=== PATIENT | female | born 1945 | race African-American/Black ===

== ENCOUNTER → 2016-08-07 | Outpatient (CLI) | payer MEDICARE, OTHER | LOC: WI 10:32 | PROVIDERS: ATTEND Physician Assistant | DX: Z12.31 Encounter for screening mammogram for malignant neoplasm of breast (principal) | CPT/HCPCS: 77067; G0202 ==

== ENCOUNTER → 2016-10-21 | Outpatient (CLI) | payer MEDICARE, OTHER | LOC: OD 11:07 | PROVIDERS: ATTEND Physician Assistant | DX: M25.511 Pain in right shoulder (principal) ==

== ENCOUNTER → 2017-01-13 | Outpatient (CLI) | payer MEDICARE, OTHER ==
--- NOTE | 2017-01-13 16:41 | XCELERA REPORT ---
[address] [address] Lower Extremity Venous Evaluation Name: DARY BASS Age: 71 yrs Gender: Female : 1945 Patient Status: Outpatient Patient Location: Study Date: 01/13/2017 03:32 PM Procedure: Color flow and duplex imaging bilaterally of the veins of the lower extremities as well as the Common Femoral veins. Reason For Study: BLE PAIN Ordering Physician: CECILIA TINEO Performed By: Montana Rodarte Right Sided Venous Evaluation Normal vessel filling wall to wall, compression and augmentation as well as Colour flow down to the infrageniculate veins. Left Sided Venous Evaluation Normal vessel filling wall to wall, compression and augmentation as well as Colour flow down to the infrageniculate veins. Interpretation Summary No duplex evidence of DVT or obstruction in the bilateral lower extremities. : CECILIA TINEO > Bipin Germain
== END ==
LOC: SP 14:30
PROVIDERS: ATTEND Physician Assistant
DX: M79.662 Pain in left lower leg (principal); M79.661 Pain in right lower leg
CPT/HCPCS: 93970

== ENCOUNTER → 2017-02-02 | Outpatient (CLI) | payer MEDICARE, OTHER ==
--- NOTE | 2017-02-02 11:03 | RADIOLOGY REPORT (SQ) ---
EXAM DESCRIPTION: U/S THYROID/SFT TISS HD NECK COMPLETED DATE/TIME: 02/02/2017 10:27 am REASON FOR STUDY: TYROID NODULES (E04.1) E04.1 NONTOXIC SINGLE THYROID NODULE COMPARISON: None. TECHNIQUE: Dynamic and static almeida-scale images acquired of the thyroid gland. Selected additional c olor/power Doppler images recorded. All images stored to PACS. LIMITATIONS: None. FINDINGS: RIGHT LOBE: Normal size. Homogeneous echotexture. Heterogenous nodule in the midpole christy suring 7 mm. LEFT LOBE: Normal size. Homogeneous echotexture. Heterogenous nodules, the largest measuring 9 mm a nd 12 mm. ISTHMUS: Normal size. Homogeneous echotexture. No cystic or solid masses. OTHER: No other significant finding. IMPRESSION: BILATERAL HETEROGENOUS NODULES PROBABLY DUE TO MULTINODULAR GOITER. NO DOMINANT MASS. COMMENT: RECOMMENDATIONS FOR THYROID NODULES 1 CM OR LARGER Solitary nodules: Microcalcifications - FNA if 1 cm or greater. Solid or coarse calcification - FNA if 1.5 cm or greater. Mixed Solid/Cystic or Cystic with Mural Nodule - FNA if 2 cm or greater. None of the above but substantial growth since previous - FNA. Cystic with none of the above features and no significant growth - no FNA. Multiple nodules: Use above criteria for selection of nodules to FNA/biopsy. Biopsy probably not necessary in enlarged gland with multiple nodules of similar appearance. Abnormal lymph nodes - FNA/biopsy. Reference: Management of Thyroid Nodules Detected at [place]: Society of Radiologists in Ultrasound Consensus Stateme nt. Radiology 2005; 237:794-800 TECHNICAL DOCUMENTATION: JOB ID: [id number] [employer]- All Rights Reserved
== END ==
LOC: RAD 09:29
PROVIDERS: ATTEND Physician Assistant
DX: E04.1 Nontoxic single thyroid nodule (principal)
CPT/HCPCS: 76536

== ENCOUNTER → 2017-02-23 | Outpatient (CLI) | payer MEDICARE, OTHER ==
--- NOTE | 2017-02-23 11:14 | RADIOLOGY REPORT (SQ) ---
EXAM DESCRIPTION: ARTERIAL LOWER EXTREM UNILAT COMPLETED DATE/TIME: 02/23/2017 10:36 am REASON FOR STUDY: LLE PAIN R60.0 LOCALIZED EDEMA M79.662 PAIN IN LEFT LOWER LEG COMPARISON: Bilateral lower extremity venous Doppler 01/13/2017 TECHNIQUE: Dynamic and static almeida scale and color images acquired of the lower extremity arteries. Additional selected spectral images recorded. ABIs recorded. LIMITATIONS: None. FINDINGS: LEFT LEG: ABIS: Normal, over 1.0. INFLOW ARTERIES: Normal, no obstruction evident. FEMORAL ARTERIES:Multiphasic waveforms. Normal, no velocity elevation to suggest focal stenosis. Norm al color Doppler evaluation. No aneurysm. POPLITEAL ARTERY:Multiphasic waveforms. Normal, no velocity elevation to suggest focal stenosis. Norm al color Doppler evaluation. No aneurysm. PATENT TIBIOPERONEAL TRUNK AND 3 VESSEL RUNOFF: Yes, normal vessels. TBI: Not performed. OTHER: No other significant finding. IMPRESSION: NORMAL LEFT LOWER EXTREMITY ARTERIAL DOPPLER WITH ABIs. COMMENT: [facility] NORMAL: Greater than 1.0 MINIMAL DISEASE: 0.9 to 1.0 CLAUDICATION: 0.5 to 0.9 SEVERE ARTERIAL DISEASE: Less than 0.5 [facility] NORMAL: Greater than 1.0 (1.2 If Heavy Calcifications) NORMAL TO MILD ISCHEMIA: 0.8 to 1.0 MODERATE ISCHEMIA: 0.4 to 0.8 SEVERE ISCHEMIA: Less than 0.4 TECHNICAL DOCUMENTATION: JOB ID: [id number] [employer]- All Rights Reserved
== END ==
LOC: SP 09:22
PROVIDERS: ATTEND Physician Assistant
DX: M79.662 Pain in left lower leg (principal)
CPT/HCPCS: 93926

== ENCOUNTER 2017-03-04 17:30 | Emergency (ER) | payer MEDICARE, OTHER ==
[2017-03-04] MEDS ORDERED: ASPIRIN 81 MG TABLET, CHEWABLE PO ONE (18:08)
--- NOTE | 2017-03-04 19:13 | ER Document Report ---
ED Medical Screen (RME) - General Chief Complaint: Shortness Of Breath Stated Complaint: RIGHT SIDE ARM PAIN,TINGLING,NECK PAIN Time Seen by Provider: 03/04/17 18:54 Notes: Patient has multiple different complaints. She states she has had right arm pain for a month but is worse today. She denies any swelling. She also states that she has had left leg swelling and pain. She states she has had a leg swelling for over 1 month and an ultrasound a month ago was negative. Patient mentioned shortness of breath to the triage nurse but did not mention any shortness of breath to me. TRAVEL OUTSIDE OF THE [place] IN LAST 30 DAYS: No - Related Data Allergies/Adverse Reactions: Sulfa (Sulfonamide Antibiotics) Allergy (Intermediate, Verified 03/04/17 18:06) Past Medical History - Social History Frequency of alcohol use: None Drug Abuse: None - Past Medical History Cardiac Medical History: Reports: Hx Hypertension Pulmonary Medical History: Denies: Hx Tuberculosis Renal/ Medical History: Denies: Hx Peritoneal Dialysis Musculoskeltal Medical History: Reports Hx Arthritis Past Surgical History: Reports: Hx Orthopedic Surgery - back. Denies: Hx Pacemaker - Immunizations Hx Diphtheria, Pertussis, Tetanus Vaccination: Yes Physical Exam - Vital signs Vitals: Temp Pulse Resp BP Pulse Ox 98.9 F 67 20 158/66 H 93 03/04/17 18:06 03/04/17 18:06 03/04/17 18:06 03/04/17 18:06 03/04/17 18:06 Course - Vital Signs Vital signs: Temp Pulse Resp BP Pulse Ox 98.9 F 67 20 158/66 H 93 03/04/17 18:06 03/04/17 18:06 03/04/17 18:06 03/04/17 18:06 03/04/17 18:06
[2017-03-04] MEDS ORDERED: KETOROLAC TROMETHAMINE 60 MG/2 ML SDV IM ONE (19:28)
--- NOTE | 2017-03-04 19:31 | RADIOLOGY REPORT (SQ) ---
EXAM DESCRIPTION: HUMERUS RIGHT COMPLETED DATE/TIME: 03/04/2017 7:23 pm REASON FOR STUDY: pain COMPARISON: None. NUMBER OF VIEWS: Two views. TECHNIQUE: Two radiographic images were acquired of the right humerus to include elbow and shoulder in at least one projection. LIMITATIONS: None. FINDINGS: MINERALIZATION: Normal. BONES: No acute fracture or dislocation. No worrisome bone lesions. SOFT TISSUES: No obvious swelling or foreign body. OTHER: No other significant finding. IMPRESSION: NEGATIVE STUDY OF THE RIGHT HUMERUS. NO RADIOGRAPHIC EVIDENCE OF ACUTE INJURY. TECHNICAL DOCUMENTATION: JOB ID: [id number] [employer]- All Rights Reserved
--- NOTE | 2017-03-04 19:52 | EKG REPORT ---
SEVERITY:- OTHERWISE NORMAL ECG - SINUS RHYTHM LEFT AXIS DEVIATION : Confirmed by: Shine Flores MD 04-Mar-2017 19:51:28
--- NOTE | 2017-03-04 21:34 | RADIOLOGY REPORT (SQ) ---
EXAM DESCRIPTION: VENOUS UNILATERAL UPPER COMPLETED DATE/TIME: 03/04/2017 9:25 pm REASON FOR STUDY: right upper ext pain COMPARISON: None. TECHNIQUE: Dynamic and static almeida scale and color images acquired of the right arm venous system. S elected spectral images acquired with additional compression and augmentation maneuvers. The contrala teral subclavian vein and internal jugular vein were also imaged. Images stored on PACS. LIMITATIONS: None. FINDINGS: INTERNAL JUGULAR VEIN: Normal phasicity, compression, augmentation. No visualized echogeni c material on almeida scale. No defects on color images. Comparison opposite side normal. SUBCLAVIAN VEIN: Normal compression, augmentation. No visualized echogenic material on almeida scale. No defects on color images. AXILLARY VEIN: Normal compression, augmentation. No visualized echogenic material on almeida scale. No d efects on color images. BRACHIAL VEIN: Normal compression, augmentation. No visualized echogenic material on almeida scale. No d efects on color images. BASILIC VEIN: Normal compression, augmentation. No visualized echogenic material on almeida scale. No de fects on color images. CEPHALIC VEIN: Normal compression, augmentation. No visualized echogenic material on almeida scale. No d efects on color images. OTHER: No other significant finding. CONTRALATERAL SUBCLAVIAN VEIN AND INTERNAL JUGULAR VEIN: Normal phasicity, compression and augmentation. No visualized echogenic material on almeida scale. No de fects on color images. IMPRESSION: NO EVIDENCE DVT OR SVT IN THE RIGHT ARM. TECHNICAL DOCUMENTATION: JOB ID: [id number] [employer]- All Rights Reserved
--- NOTE | 2017-03-04 22:11 | ER Document Report ---
ED General - General Chief Complaint: Shortness Of Breath Stated Complaint: RIGHT SIDE ARM PAIN,TINGLING,NECK PAIN Time Seen by Provider: 03/04/17 18:54 TRAVEL OUTSIDE OF THE [place] IN LAST 30 DAYS: No - HPI Patient complains to provider of: Right arm pain Notes: Patient coming in for intermittent right arm pain. Patient states has been evaluated by primary care physician however has not found clear etiology for the right arm pain. Denies any trauma states pain is mostly achy at the biceps region. Denies any new physical activity. Denies any relief with Tylenol. Upon my evaluation patient is resting comfortably in no obvious distress. - Related Data Allergies/Adverse Reactions: Sulfa (Sulfonamide Antibiotics) Allergy (Intermediate, Verified 03/04/17 18:06) Past Medical History - Social History Smoking Status: Never Smoker Frequency of alcohol use: None Drug Abuse: None Family History: Reviewed & Not Pertinent Patient has suicidal ideation: No Patient has homicidal ideation: No - Past Medical History Cardiac Medical History: Reports: Hx Hypertension Pulmonary Medical History: Denies: Hx Tuberculosis Renal/ Medical History: Denies: Hx Peritoneal Dialysis Musculoskeltal Medical History: Reports Hx Arthritis Past Surgical History: Reports: Hx Orthopedic Surgery - back. Denies: Hx Pacemaker - Immunizations Hx Diphtheria, Pertussis, Tetanus Vaccination: Yes Review of Systems - Review of Systems Constitutional: No symptoms reported EENT: No symptoms reported Cardiovascular: No symptoms reported Respiratory: No symptoms reported Gastrointestinal: No symptoms reported Genitourinary: No symptoms reported Female Genitourinary: No symptoms reported Musculoskeletal: No symptoms reported Skin: No symptoms reported Hematologic/Lymphatic: No symptoms reported Neurological/Psychological: No symptoms reported -: Yes All other systems reviewed and negative - Right arm pain Physical Exam - Vital signs Vitals: Temp Pulse Resp BP Pulse Ox 98.9 F 67 20 158/66 H 93 03/04/17 18:06 03/04/17 18:06 03/04/17 18:06 03/04/17 18:06 03/04/17 18:06 Interpretation: Normal - General General appearance: Appears well, Alert - HEENT Head: Normocephalic, Atraumatic Eyes: Normal Pupils: PERRL - Respiratory Respiratory status: No respiratory distress Chest status: Nontender Breath sounds: Normal Chest palpation: Normal - Cardiovascular Rhythm: Regular Heart sounds: Normal auscultation Murmur: No - Abdominal Inspection: Normal Distension: No distension Bowel sounds: Normal Tenderness: Nontender Organomegaly: No organomegaly - Back Back: Normal, Nontender - Extremities General upper extremity: Normal inspection, Nontender, Normal color, Normal ROM , Normal temperature General lower extremity: Normal inspection, Nontender, Normal color, Normal ROM , Normal temperature, Normal weight bearing. No: Katherine's sign - Neurological Neuro grossly intact: Yes Cognition: Normal Orientation: AAOx4 [place] Coma Scale Eye Opening: Spontaneous Darby Coma Scale Verbal: Oriented Darby Coma Scale Motor: Obeys Commands [place] Coma Scale Total: 15 Speech: Normal Motor strength normal: LUE, RUE, LLE, RLE Sensory: Normal - Psychological Associated symptoms: Normal affect, Normal mood - Skin Skin Temperature: Warm Skin Moisture: Dry Skin Color: Normal Course - Re-evaluation Re-evalutation: 03/04/17 23:18 No signs of fracture or blood clot on examination. Patient will be discharged home patient states good pain relief with ketorolac. She will be encouraged to use lidocaine patches and or anti-inflammatory medications. - Vital Signs Vital signs: Temp Pulse Resp BP Pulse Ox 97.5 F 56 L 17 140/62 H 100 03/04/17 23:07 03/04/17 23:07 03/04/17 23:07 03/04/17 23:07 03/04/17 23:07 Discharge - Discharge Clinical Impression: Right arm pain Condition: Good Disposition: HOME, SELF-CARE Instructions: Arm Pain, Nonspecific ([facility]), Myalagia (Muscle Pain) ([facility]) Additional Instructions: Examination today including x-rays and venous Dopplers not show any signs of fracture or blood clot. I am pleased that your pain was relieved with ketorolac. SHe may also try the Lidoderm patch given to you here in the ER. [employer] makes lidocaine cream also [employer] makes Lidoderm patches that she may also try please continue with Tylenol Motrin follow-up with your primary care physician. Prescriptions: Ibuprofen [Motrin 600 Mg Tablet] 600 mg PO TID #15 tablet Referrals: SANDRA MAZA MD [Primary Care Provider] - Follow up as needed
[2017-03-04 23:08] VITALS: BP 140/62
[2017-03-04] MEDS ORDERED: LIDOCAINE 5% (700 MG) TRANSDERMAL ADH..PATCH TP ONE (23:13)
== END 2017-03-04 23:22 | disposition home or self-care (01) ==
LOC: ER 17:30
DX: M79.601 Pain in right arm (principal); R06.02 Shortness of breath; R20.0 Anesthesia of skin; M54.2 Cervicalgia
CPT/HCPCS: 93005; 99284; 96372; 93971; 73060; 93010; A9270; J1885

== ENCOUNTER 2017-04-01 10:34 | Inpatient (IN) | payer MEDICARE, OTHER ==
[2017-04-01] MEDS ORDERED: METOPROLOL TARTRATE PF/INJ 5 MG/5 ML SDV IV ONE (10:45)
--- NOTE | 2017-04-01 10:55 | ER Document Report ---
ED General - General Chief Complaint: Arrhythmia Stated Complaint: HEART RATE ISSUES Time Seen by Provider: 04/01/17 10:37 Notes: 71-year-old female presents with shortness of breath for 2 weeks, worse when lying flat and exertion and then accompanied today by palpitations. Constant. Severe. No history of chest pain or pressure. She has had swollen legs. Per Dr. Cannon who accompanies this patient to the ED he has been managing her ideally with Eliquis and Cardizem but she was unable to fill those meds. She got 25 chewed metoprolol 25 oral at the office and remains tachycardic. She is a patient of Dr. Anaya. TRAVEL OUTSIDE OF THE [place] IN LAST 30 DAYS: No - Related Data Allergies/Adverse Reactions: Sulfa (Sulfonamide Antibiotics) Allergy (Intermediate, Verified 03/04/17 18:06) Past Medical History - Social History Smoking Status: Former Smoker Family History: Reviewed & Not Pertinent - Past Medical History Cardiac Medical History: Reports: Hx Hypertension Pulmonary Medical History: Denies: Hx Tuberculosis Renal/ Medical History: Denies: Hx Peritoneal Dialysis Musculoskeltal Medical History: Reports Hx Arthritis Past Surgical History: Reports: Hx Orthopedic Surgery - back. Denies: Hx Pacemaker - Immunizations Hx Diphtheria, Pertussis, Tetanus Vaccination: Yes Review of Systems - Review of Systems Notes: REVIEW OF SYSTEMS GEN: Denies fever, chills, weight loss ENT: Denies sore throat, nasal discharge, ear pain EYES: Denies blurry vision, eye pain, discharge CV: D palpitations edema RESP: Dyspnea orthopnea GI: Denies abdominal pain, nausea, vomiting, diarrhea MSK: Denies joint pain/swelling, edema, SKIN: Denies rash, skin lesions LYMPH: Denies swollen glands/lymph nodes NEURO: Denies headache, focal weakness or numbness, dizziness PSYCH: Denies depression, suicidal or homicidal ideation PHYSICAL EXAMINATION General: No acute distress, well-nourished Head: Atraumatic, normocephalic ENT: Mouth normal, oropharynx moist, no exudates or tonsillar enlargement Eyes: Conjunctiva normal, pupils equal, lids normal Neck: No JVD, supple, no guarding CVS: Irregularly irregular tachycardic rate no murmurs Resp: No resp distress, equal and normal breath sounds bilaterally GI: Nondistended, soft, no tenderness to palpation, no rebound or guarding Ext: No deformities, lateral 2+ leg edema, normal range of motion in upper and lower ext Back: No CVA or midline TTP Skin: No rash, warm Lymphatic: No lymphadeopathy noted Neuro: Awake, alert. Face symmetric. GCS 15. Physical Exam - Vital signs Vitals: Resp 23 H 04/01/17 10:43 Course - Re-evaluation Re-evalutation: 04/01/17 10:54 Patient presented with atrial fib relation rapid ventricular response and some signs of heart failure. She is in no acute distress. Rate is in the 140s. Discussed case with Dr. Simpson who is at the bedside. Will start patient on Cardizem bolus and drip give aspirin rule out heart failure with BNP and chest x -ray admit to Dr. Lynn. Dr. melissa has already contacted Dr. Lynn. - Vital Signs Vital signs: Temp Pulse Resp BP Pulse Ox 20 125/106 H 04/01/17 10:48 04/01/17 10:48 Critical Care Note - Critical Care Note Total time excluding time spent on procedures (mins): 31 Comments: The above patient is critically ill. Not including procedures, but including direct re-evaluations, speaking with patient and/or consultants, interpreting results, and documenting, I spent the total amount of minute listed listed above on critical care time
[2017-04-01] MEDS ORDERED: DILTIAZEM HCL INJ 25 MG/5 ML VIAL IV ONE (10:59)
[2017-04-01] MEDS ORDERED: LEVALBUTEROL HCL NEB 0.63 MG/3 ML AMPUL NEB PRN (11:04)
--- NOTE | 2017-04-01 11:28 | RADIOLOGY REPORT (SQ) ---
EXAM DESCRIPTION: CHEST SINGLE VIEW COMPLETED DATE/TIME: 04/01/2017 11:08 am REASON FOR STUDY: [facility] COMPARISON: 08/28/2015 EXAM PARAMETERS: NUMBER OF VIEWS: One view. TECHNIQUE: Single frontal radiographic view of the chest acquired. RADIATION DOSE: NA LIMITATIONS: None. FINDINGS: LUNGS AND PLEURA: No opacities, masses or pneumothorax. No pleural effusion. MEDIASTINUM AND HILAR STRUCTURES: No masses. Contour normal. HEART AND VASCULAR STRUCTURES: Heart size is borderline. There is no failure. BONES: No acute findings. HARDWARE: None in the chest. OTHER: No other significant finding. IMPRESSION: Borderline cardiomegaly without failure. TECHNICAL DOCUMENTATION: JOB ID: [id number]
[2017-04-01 11:30] LABS: ABSOLUTE EOSINOPHILS # (AUTO) 0.1 10^3/uL (0.0-0.6); ABSOLUTE LYMPHOCYTES (AUTO) 1.3 10^3/uL (0.5-4.7); ABSOLUTE MONOCYTES (AUTO) 0.3 10^3/uL (0.1-1.4); BASOPHILS % (AUTO) 0.6 % (0-2); EOSINOPHILS % (AUTO) 1.8 % (0-6); HEMATOCRIT 31.5 % (36.0-47.0); HEMOGLOBIN 10.1 g/dL (12.0-15.5); HGB HCT DIFFERENCE -1.2; LYMPHOCYTES % (AUTO) 22.8 % (13-45); MEAN CORPUSCULAR VOLUME 84 fl (80-97); MONOCYTES % (AUTO) 4.9 % (3-13); RED BLOOD COUNT 3.73 10^6/uL (3.72-5.28); RED CELL DISTRIBUTION WIDTH 14.3 % (11.5-14.0); SEGMENTED NEUTROPHILS % (AUTO) 69.9 % (42-78); WHITE BLOOD COUNT 5.7 10^3/uL (4.0-10.5)
[2017-04-01] MEDS: DILTIAZEM HCL/D5W 125 MG/125 ML RTUINJ IV PRN ×2 (11:40→20:29)
[2017-04-01 11:53] LABS: ANION GAP 9 (5-19); BLOOD UREA NITROGEN 44 mg/dL (7-20); CALCIUM 9.4 mg/dL (8.4-10.2); CARBON DIOXIDE 24 mmol/L (22-30); CHLORIDE 110 mmol/L (98-107); CREATININE RESULT 1.27 mg/dL (0.52-1.25); GLUCOSE 102 mg/dL (75-110); POTASSIUM 4.4 mmol/L (3.6-5.0); SODIUM 143.3 mmol/L (137-145)
[2017-04-01 12:04] LABS: CREATINE KINASE MB 1.41 ng/mL (<4.55)
[2017-04-01 12:10] LABS: TROPONIN I 0.039 ng/mL
--- NOTE | 2017-04-01 12:48 | PDOC H&P ---
History of Present Illness Admission Date/PCP: SANDRA MAZA MD Patient complains of: Shortness of the breath with a rapid heart rate History of Present Illness: DARY BASS is a 71 year old female This is a 71-year-old female with a history of the hypertension and recently diagnosed with atrial fibrillation and currently see a Dr. Simpson and start the patient on a Cardizem and EliquisAnd the patient's cannot afford the Cardizem and patients went to the Dr. Simpson's office was a heart rate was very high and patient's feeling short of breath and patient was sent to the emergency departmentAnd the patient in the emergency departments found the A. fib with rapid ventricular response and patient was started on a Cardizem drip and given Lovenox subcuAnd patient seen by Dr. Simpson in the emergency department and the suggest to admit in the IMCU for further evaluations Patient's currently denied any chest pain denied any other symptoms Past Medical History Cardiac Medical History: Reports: Atrial Fibrillation, Hypertension Pulmonary Medical History: Denies: Tuberculosis Endocrine Medical History: Reports: Other Endocrine History Note: Multinodular goiter Musculoskeltal Medical History: Reports: Arthritis Musculoskeletal History Note: Chronic back pain and neck pain Hematology: Reports: Other Hematology History Note: History of the deep venous thrombosis Past Surgical History Past Surgical History: Reports: Orthopedic Surgery - back Denies: Pacemaker Social History Smoking Status: Former Smoker Hx Recreational Drug Use: No Hx Prescription Drug Abuse: No Family History Family History: Reviewed & Not Pertinent Parental Family History Reviewed: Yes Children Family History Reviewed: Yes Sibling(s) Family History Reviewed.: Yes Medication/Allergy Allergies/Adverse Reactions: Sulfa (Sulfonamide Antibiotics) Allergy (Intermediate, Verified 03/04/17 18:06) Review of Systems Constitutional: PRESENT: fatigue. ABSENT: chills, fever(s), headache(s), weight gain, weight loss Eyes: ABSENT: visual disturbances Ears: ABSENT: hearing changes Cardiovascular: PRESENT: dyspnea on exertion, palpitations. ABSENT: chest pain , edema, orthropnea Respiratory: ABSENT: cough, hemoptysis Gastrointestinal: ABSENT: abdominal pain, constipation, diarrhea, hematemesis, hematochezia, nausea, vomiting Genitourinary: ABSENT: dysuria, hematuria Musculoskeletal: ABSENT: joint swelling Integumentary: ABSENT: rash, wounds Neurological: ABSENT: abnormal gait, abnormal speech, confusion, dizziness, focal weakness, syncope Psychiatric: ABSENT: anxiety, depression, homidical ideation, suicidal ideation Endocrine: ABSENT: cold intolerance, heat intolerance, menstrual abnormalities, polydipsia, polyuria Hematologic/Lymphatic: ABSENT: easy bleeding, easy bruising, lymphadenopathy Physical Exam Vital Signs: Temp Pulse Resp BP Pulse Ox 20 125/106 H 04/01/17 10:48 04/01/17 10:48 General appearance: PRESENT: no acute distress, well-developed, well-nourished Head exam: PRESENT: atraumatic, normocephalic Eye exam: PRESENT: conjunctiva pink, EOMI, PERRLA. ABSENT: scleral icterus Ear exam: PRESENT: normal external ear exam Mouth exam: PRESENT: moist, tongue midline Neck exam: PRESENT: full ROM. ABSENT: carotid bruit, JVD, lymphadenopathy, thyromegaly Respiratory exam: PRESENT: clear to auscultation mary Cardiovascular exam: PRESENT: irregular rhythm, +S1, +S2, tachycardia. ABSENT: diastolic murmur, rubs, systolic murmur Pulses: PRESENT: normal dorsalis pedis pul, +2 pedal pulses bilateral Vascular exam: PRESENT: normal capillary refill GI/Abdominal exam: PRESENT: normal bowel sounds, soft. ABSENT: distended, guarding, mass, organolmegaly, rebound, tenderness Rectal exam: PRESENT: deferred Extremities exam: ABSENT: pedal edema Neurological exam: PRESENT: alert, awake, oriented to person, oriented to place , oriented to time, oriented to situation, CN II-XII grossly intact. ABSENT: motor sensory deficit Psychiatric exam: PRESENT: appropriate affect, normal mood. ABSENT: homicidal ideation, suicidal ideation Skin exam: PRESENT: dry, intact, warm. ABSENT: cyanosis, rash Results Laboratory Results: 04/01/17 11:11 04/01/17 11:11 WBC 5.7 RBC 3.73 Hgb 10.1 L Hct 31.5 L MCV 84 MCH 27.0 MCHC 32.0 RDW 14.3 H Plt Count 154 Seg Neutrophils % 69.9 Lymphocytes % 22.8 Monocytes % 4.9 Eosinophils % 1.8 Basophils % 0.6 Absolute Neutrophils 4.0 Absolute Lymphocytes 1.3 Absolute Monocytes 0.3 Absolute Eosinophils 0.1 Absolute Basophils 0.0 Impressions: Chest X-Ray 04/01/17 10:37 IMPRESSION: Borderline cardiomegaly without failure. Assessment & Plan - Diagnosis (1) Atrial fibrillation with rapid ventricular response Is this a current diagnosis for this admission?: Yes Plan: Start the patient on a Cardizem drip and continues the Lovenox and follow with the cardiology (2) Congestive heart failure Qualifiers: Congestive heart failure type: unspecified congestive heart failure type Congestive heart failure chronicity: acute Qualified Code(s): I50.9 - Heart failure, unspecified Is this a current diagnosis for this admission?: Yes Plan: Start the patient on IV Lasix and get the echocardiogram (3) SOB Is this a current diagnosis for this admission?: Yes Plan: Most likely due to the above conditionsWe will also get the CT angiogram due to the history of the DVT in the past with new onset of the shortness of the breath and the A. fib (4) Hypertension Qualifiers: Hypertension type: essential hypertension Qualified Code(s): I10 - Essential (primary) hypertension Is this a current diagnosis for this admission?: Yes Plan: Currently all stable (5) Chronic back pain Qualifiers: Back pain location: low back pain Is this a current diagnosis for this admission?: Yes Plan: Since currently see a pain management (6) Hyperlipidemia Qualifiers: Hyperlipidemia type: unspecified Qualified Code(s): E78.5 - Hyperlipidemia , unspecified Is this a current diagnosis for this admission?: Yes Plan: Continues to current medication (7) Multinodular goiter Is this a current diagnosis for this admission?: Yes Plan: Since recent ultrasound was stable we will check the TSH and free T4 - Time Time Spent: 30 to 50 Minutes Medications reviewed and adjusted accordingly: Yes Anticipated discharge: Home Within: Other - Inpatient Certification Medical Necessity: Need Close Monitoring Due to Risk of Patient Decompensation, Need For Continuous Telemetry Monitoring Post Hospital Care: D/C [employer] Documentation - Plan Summary Plan Summary: Discussed with the patient and the family and coordinate care with the cardiology see other MD orders
[2017-04-01] MEDS ORDERED: FUROSEMIDE INJ/PF 20 MG/2 ML SDV IV ONE (13:45)
--- NOTE | 2017-04-01 19:21 | PDOC CONSULTATION ---
Consultation Consult Date: 04/01/17 Attending physician:: SONY EISENBERG Consult reason:: Anemia, possible GI bleed History of Present Illness Admission Date/PCP: 04/01/17 11:04 SANDRA LYNN MD History of Present Illness: patient was admitted by Dr Lynn recently had seen Dr Peña, patient found to be in A fib and procedure was defered then saw Dr Simpson and was started on rate control and Eliquis medication started to feel weak patient noted to be anemic denies seeing any blood in urine, vagina or having any hematemesis was scheduled for an EGD and colonoscopy consult called in to me I spoke with Dr Lynn, he is agreeable to moving forward to try and get the procedures done here while she is an inpatient she has had her Eliquis stopped and is now on Lovenox patient willing to have it done Past Medical History Cardiac Medical History: Reports: Atrial Fibrillation, Hypertension Pulmonary Medical History: Denies: Tuberculosis EENT Medical History: Reports: Other Endocrine Medical History: Reports: Other Musculoskeltal Medical History: Reports: Arthritis Hematology: Reports: Other Past Surgical History Past Surgical History: Reports: Orthopedic Surgery - back Denies: Pacemaker Social History Smoking Status: Never Smoker Frequency of Alcohol Use: None Hx Recreational Drug Use: No Drugs: None Hx Prescription Drug Abuse: No - Advance Directive Resuscitation Status: Full Code Family History Family History: Reviewed & Not Pertinent Parental Family History Reviewed: Yes Children Family History Reviewed: Unknown Sibling(s) Family History Reviewed.: Unknown Medication/Allergy Home Medications: Apixaban [Eliquis 5 mg Tablet] 5 mg PO Q12 04/01/17 Diltiazem HCl [Diltiazem 24Hr ER] 120 mg PO DAILY 04/01/17 Furosemide [Lasix 20 mg Tablet] 20 mg PO DAILY 04/01/17 Hydrochlorothiazide [Hydrodiuril 12.5 mg Capsule] 12.5 mg PO DAILY 04/01/17 Lisinopril [Prinivil 40 mg Tablet] 40 mg PO DAILY 04/01/17 Allergies/Adverse Reactions: Sulfa (Sulfonamide Antibiotics) Allergy (Intermediate, Verified 03/04/17 18:06) Review of Systems Constitutional: ABSENT: fever(s), headache(s), night sweats, weakness Eyes: ABSENT: visual disturbances Ears: ABSENT: hearing changes Nose, Mouth, and Throat: ABSENT: mouth pain, sore throat Cardiovascular: ABSENT: edema, orthropnea Respiratory: ABSENT: dyspnea, hemoptysis Gastrointestinal: PRESENT: heartburn. ABSENT: abdominal pain, diarrhea, dysphagia, melena Genitourinary: ABSENT: dysuria, hematuria Musculoskeletal: ABSENT: deformity, joint swelling Integumentary: ABSENT: lesions, pruritus Neurological: ABSENT: syncope, tingling, tremor(s), vertigo Psychiatric: ABSENT: anxiety Endocrine: ABSENT: polydipsia, polyphagia, polyuria Hematologic/Lymphatic: ABSENT: easy bruising Physical Exam Vital Signs: Temp Pulse Resp BP Pulse Ox 97.5 F 95 22 H 101/69 100 04/01/17 17:52 04/01/17 18:28 04/01/17 17:52 04/01/17 18:28 04/01/17 17:52 Intake & Output 03/31/17 04/01/17 04/02/17 06:59 06:59 06:59 Intake Total 480 Balance 480 Weight 109.6 kg General appearance: PRESENT: no acute distress, well-developed, well-nourished Head exam: PRESENT: atraumatic, normocephalic Eye exam: PRESENT: EOMI, PERRLA. ABSENT: nystagmus, periorbital swelling, scleral icterus Mouth exam: PRESENT: moist, neck supple Throat exam: ABSENT: tonsillar exudate, tonsillogmegaly Neck exam: ABSENT: meningismus, tenderness, thyromegaly Respiratory exam: PRESENT: symmetrical, unlabored. ABSENT: tachypnea, wheezes Cardiovascular exam: PRESENT: irregular rhythm, tachycardia Pulses: PRESENT: normal carotid pulses GI/Abdominal exam: PRESENT: soft. ABSENT: rebound, rigid, tenderness Extremities exam: ABSENT: joint swelling Musculoskeletal exam: PRESENT: full ROM Neurological exam: PRESENT: alert, awake, oriented to time, oriented to situation, CN II-XII grossly intact Psychiatric exam: PRESENT: appropriate affect Skin exam: PRESENT: normal color. ABSENT: mottled, pallor, petechiae, urticaria , vesicles Results Laboratory Results: 04/01/17 11:11 04/01/17 11:11 04/01/17 04/01/17 04/01/17 11:11 11:11 11:11 WBC 5.7 RBC 3.73 Hgb 10.1 L Hct 31.5 L MCV 84 MCH 27.0 MCHC 32.0 RDW 14.3 H Plt Count 154 Seg Neutrophils % 69.9 Lymphocytes % 22.8 Monocytes % 4.9 Eosinophils % 1.8 Basophils % 0.6 Absolute Neutrophils 4.0 Absolute Lymphocytes 1.3 Absolute Monocytes 0.3 Absolute Eosinophils 0.1 Absolute Basophils 0.0 Sodium 143.3 Potassium 4.4 Chloride 110 H Carbon Dioxide 24 Anion Gap 9 BUN 44 H Creatinine 1.27 H Est GFR ( Amer) 50 L Est GFR (Non-Af Amer) 41 L Glucose 102 Calcium 9.4 TSH 1.83 04/01/17 04/01/17 11:11 11:11 Creatine Kinase 108 CK-MB (CK-2) 1.41 Troponin I 0.039 NT-Pro-B Natriuret Pep 8480 H Impressions: Chest X-Ray 04/01/17 10:37 IMPRESSION: Borderline cardiomegaly without failure. Assessment & Plan - Diagnosis (1) Anemia Plan: could be due to possible GI bleeding patient has had her Eliquis stopped now on Lovenox will need EGD and colonoscopy Risks, benefits and alternatives are discussed with the patient in detail further recommendations to follow she is willing to proceed spoke with Dr Lynn also - Time Time Spent: 50 to 70 Minutes
--- NOTE | 2017-04-01 19:26 | XCELERA REPORT ---
[address] [address] Transthoracic Echocardiogram Report Name: DARY BASS Age: 71 yrs Gender: Female : 1945 Patient Status: Inpatient Patient Location: [address] [place] [address] Study Date: 04/01/2017 02:35 PM Height: 67 in Weight: 242 lb BSA: 2.2 m2 Procedure: A complete two-dimensional transthoracic echocardiogram was performed (2D, M-mode, spectral and color flow Doppler). The study was technically difficult with many images being suboptimal in quality. Reason For Study: chf Ordering Physician: SANDRA MAZA Performed By: Macarena Bryan Interpretation Summary Left ventricular systolic function is low normal. There is moderate concentric left ventricular hypertrophy. The left ventricle is grossly normal size. Wall motion cannot be accurately commented on, but no definite regional wall motion abnormalities noted. Right ventricular function cannot be assessed due to poor image quality. The right ventricle is mildly dilated. The right atrium is mild to moderately dilated. The left atrium is moderately dilated. There is a mild amount of mitral regurgitation There is no mitral valve stenosis. No aortic regurgitation is present. There is no aortic valve stenosis There is a trace to mild amount of tricuspid regurgitation There is mild to moderate pulmonary hypertension by echo Right ventricular systolic pressure is estimated to be elevated at 40- 50mmHg. There is no pericardial effusion. MMode/2D Measurements & Calculations RVDd: 1.9 cm LVIDd: 2.9 cm FS: 26.8 % Ao root diam: 2.2 cm IVSd: 1.6 cm LVIDs: 2.1 cm EDV(Teich): 31.2 ml LVPWd: 1.6 cm ESV(Teich): 14.3 ml Ao root area: 3.9 cm2 EF(Teich): 54.0 % LA dimension: 4.6 cm Doppler Measurements & Calculations MV E max rohan: MV P1/2t max rohan: Ao V2 max: LV V1 max P.6 cm/sec 110.6 cm/sec 85.7 cm/sec 0.91 mmHg MV A max rohan: MV P1/2t: 44.3 msec Ao max PG: LV V1 max: 42.9 cm/sec 2.9 mmHg 47.8 cm/sec MV E/A: 2.6 MVA(P1/2t): 5.0 cm2 MV dec slope: 730.9 cm/sec2 PA V2 max: TR max rohan: 66.6 cm/sec 269.6 cm/sec PA max P.8 mmHgTR max P.4 mmHg Left Ventricle The left ventricle is grossly normal size. There is moderate concentric left ventricular hypertrophy. Left ventricular systolic function is low normal. LV diastolic function could not be adequately assessed due to atrial fibrilation. Wall motion cannot be accurately commented on, but no definite regional wall motion abnormalities noted. Right Ventricle The right ventricle is mildly dilated. The right ventricle appears to be hypertrophied. Right ventricular function cannot be assessed due to poor image quality. Atria The right atrium is mild to moderately dilated. The left atrium is moderately dilated. Interarterial septum not well visualized and not well dopplered. Cannot comment on ASD/PFO presence. Mitral Valve The mitral valve leaflets are sclerotic, but show no functional abnormalities. There is no mitral valve stenosis. There is a mild amount of mitral regurgitation. Aortic Valve The aortic valve is grossly normal. There is no aortic valve stenosis. No aortic regurgitation is present. Tricuspid Valve The tricuspid valve is not well visualized secondary to technical limitations. There is no tricuspid stenosis. There is a trace to mild amount of tricuspid regurgitation. There is mild to moderate pulmonary hypertension by echo. Right ventricular systolic pressure is estimated to be elevated at 40-50mmHg. Pulmonic Valve The pulmonic valve is not well visualized. Great Vessels The aortic root is not well visualized but is probably normal size. The inferior vena cava was not visualized. Effusions There is no pericardial effusion. : SANDRA MAZA > Angela Simpson
[2017-04-01 19:30] LABS: CREATINE KINASE MB 1.2 ng/mL (<4.55); TROPONIN I 0.04 ng/mL
[2017-04-01] MEDS ORDERED: PEG 3350/NA SULF,BICARB,CL/KCL 4000 ML PO ONE (20:00)
[2017-04-01] MEDS ORDERED: ENOXAPARIN SODIUM INJ 120 MG/0.8 ML DISP.SYRIN SUBCUT SCH (22:00)
[2017-04-01] MEDS: FUROSEMIDE INJ/PF 20 MG/2 ML SDV IV SCH (23:00)
[2017-04-02 02:18] LABS: CREATINE KINASE MB 1.42 ng/mL (<4.55)
[2017-04-02 02:24] LABS: TROPONIN I 0.038 ng/mL
[2017-04-02] MEDS: DILTIAZEM HCL/D5W 125 MG/125 ML RTUINJ IV PRN ×3 (03:36→20:01)
[2017-04-02 06:26] LABS: ABSOLUTE EOSINOPHILS # (AUTO) 0.1 10^3/uL (0.0-0.6); ABSOLUTE LYMPHOCYTES (AUTO) 1.2 10^3/uL (0.5-4.7); ABSOLUTE MONOCYTES (AUTO) 0.4 10^3/uL (0.1-1.4); ABSOLUTE NEUT (AUTO) 3.3 10^3/uL (1.7-8.2); BASOPHILS % (AUTO) 0.6 % (0-2); EOSINOPHILS % (AUTO) 2.4 % (0-6); HEMATOCRIT 29.5 % (36.0-47.0); HEMOGLOBIN 9.6 g/dL (12.0-15.5); HGB HCT DIFFERENCE -0.7; LYMPHOCYTES % (AUTO) 24.7 % (13-45); MEAN CORPUSCULAR HEMOGLOBIN 27.3 pg (27.0-33.4); MEAN CORPUSCULAR HGB CONC 32.6 g/dL (32.0-36.0); MEAN CORPUSCULAR VOLUME 84 fl (80-97); RED BLOOD COUNT 3.53 10^6/uL (3.72-5.28); RED CELL DISTRIBUTION WIDTH 13.9 % (11.5-14.0); SEGMENTED NEUTROPHILS % (AUTO) 65.3 % (42-78)
[2017-04-02 06:39] LABS: ANION GAP 11 (5-19); BLOOD UREA NITROGEN 46 mg/dL (7-20); CALCIUM 8.9 mg/dL (8.4-10.2); CARBON DIOXIDE 23 mmol/L (22-30); CHLORIDE 108 mmol/L (98-107); GLUCOSE 104 mg/dL (75-110); MAGNESIUM 1.8 mg/dL (1.6-2.3); POTASSIUM 4.2 mmol/L (3.6-5.0); SODIUM 142.1 mmol/L (137-145)
--- NOTE | 2017-04-02 08:04 | PDOC PROGRESS REPORT ---
Subjective Progress Note for:: 04/02/17 Subjective:: Patient is currently doing fair. Patient's denied any chest pain without any shortness of the breath. Patients is currently on a Cardizem drip 15 heart rate is running around 100to 110 Patient scheduled for endoscopy and colonoscopy by Dr. Adams Patient's echocardiogram is currently stable Physical Exam Vital Signs: Temp Pulse Resp BP Pulse Ox 97.6 F 95 17 103/70 100 04/02/17 03:27 04/02/17 07:00 04/02/17 03:27 04/02/17 07:00 04/02/17 03:27 Intake & Output 04/01/17 04/02/17 04/03/17 06:59 06:59 06:59 Intake Total 960 Balance 960 Weight 109.6 kg General appearance: PRESENT: no acute distress, well-developed, well-nourished Head exam: PRESENT: atraumatic, normocephalic Eye exam: PRESENT: conjunctiva pink, EOMI, PERRLA. ABSENT: scleral icterus Ear exam: PRESENT: normal external ear exam Mouth exam: PRESENT: moist, tongue midline Neck exam: PRESENT: full ROM. ABSENT: carotid bruit, JVD, lymphadenopathy, thyromegaly Respiratory exam: PRESENT: clear to auscultation mary Cardiovascular exam: PRESENT: RRR. ABSENT: diastolic murmur, rubs, systolic murmur Pulses: PRESENT: normal dorsalis pedis pul, +2 pedal pulses bilateral Vascular exam: PRESENT: normal capillary refill GI/Abdominal exam: PRESENT: normal bowel sounds, soft. ABSENT: distended, guarding, mass, organolmegaly, rebound, tenderness Rectal exam: PRESENT: deferred Neurological exam: PRESENT: alert, awake, oriented to person, oriented to place , oriented to time, oriented to situation, CN II-XII grossly intact. ABSENT: motor sensory deficit Psychiatric exam: PRESENT: appropriate affect, normal mood. ABSENT: homicidal ideation, suicidal ideation Skin exam: PRESENT: dry, intact, warm. ABSENT: cyanosis, rash Results Laboratory Results: 04/02/17 05:49 04/02/17 05:49 04/01/17 04/01/17 04/01/17 11:11 11:11 11:11 WBC 5.7 RBC 3.73 Hgb 10.1 L Hct 31.5 L MCV 84 MCH 27.0 MCHC 32.0 RDW 14.3 H Plt Count 154 Seg Neutrophils % 69.9 Lymphocytes % 22.8 Monocytes % 4.9 Eosinophils % 1.8 Basophils % 0.6 Absolute Neutrophils 4.0 Absolute Lymphocytes 1.3 Absolute Monocytes 0.3 Absolute Eosinophils 0.1 Absolute Basophils 0.0 Sodium 143.3 Potassium 4.4 Chloride 110 H Carbon Dioxide 24 Anion Gap 9 BUN 44 H Creatinine 1.27 H Est GFR ( Amer) 50 L Est GFR (Non-Af Amer) 41 L Glucose 102 Calcium 9.4 Magnesium TSH 1.83 04/02/17 04/02/17 05:49 05:49 WBC 5.0 RBC 3.53 L Hgb 9.6 L Hct 29.5 L MCV 84 MCH 27.3 MCHC 32.6 RDW 13.9 Plt Count 127 L Seg Neutrophils % 65.3 Lymphocytes % 24.7 Monocytes % 7.0 Eosinophils % 2.4 Basophils % 0.6 Absolute Neutrophils 3.3 Absolute Lymphocytes 1.2 Absolute Monocytes 0.4 Absolute Eosinophils 0.1 Absolute Basophils 0.0 Sodium 142.1 Potassium 4.2 Chloride 108 H Carbon Dioxide 23 Anion Gap 11 BUN 46 H Creatinine 1.30 H Est GFR ( Amer) 49 L Est GFR (Non-Af Amer) 40 L Glucose 104 Calcium 8.9 Magnesium 1.8 TSH 04/01/17 04/01/17 04/01/17 11:11 11:11 18:30 Creatine Kinase 108 84 CK-MB (CK-2) 1.41 Troponin I 0.039 NT-Pro-B Natriuret Pep 8480 H 04/01/17 04/02/17 04/02/17 18:30 01:08 01:08 Creatine Kinase 106 CK-MB (CK-2) 1.20 1.42 Troponin I 0.040 0.038 NT-Pro-B Natriuret Pep 04/02/17 05:49 Creatine Kinase CK-MB (CK-2) Troponin I NT-Pro-B Natriuret Pep 4810 H Impressions: Chest X-Ray 04/01/17 10:37 IMPRESSION: Borderline cardiomegaly without failure. Assessment & Plan - Diagnosis (1) Atrial fibrillation with rapid ventricular response Is this a current diagnosis for this admission?: Yes Plan: As per discussed with the cardiology will given 1 dose of the digoxin and continues to Cardizem drip until the procedures and switch to the p.o. medications (2) Congestive heart failure Qualifiers: Congestive heart failure type: unspecified congestive heart failure type Congestive heart failure chronicity: acute Qualified Code(s): I50.9 - Heart failure, unspecified Is this a current diagnosis for this admission?: Yes Plan: Start the patient on IV Lasix and get the echocardiogram (3) SOB Is this a current diagnosis for this admission?: Yes Plan: Currently all improving most likely underlying congestive heart failure (4) Hypertension Qualifiers: Hypertension type: essential hypertension Qualified Code(s): I10 - Essential (primary) hypertension Is this a current diagnosis for this admission?: Yes Plan: Currently stable (5) Chronic back pain Qualifiers: Back pain location: low back pain Is this a current diagnosis for this admission?: Yes Plan: Since currently see a pain management (6) Hyperlipidemia Qualifiers: Hyperlipidemia type: unspecified Qualified Code(s): E78.5 - Hyperlipidemia , unspecified Is this a current diagnosis for this admission?: Yes Plan: Continues to current medication (7) Multinodular goiter Is this a current diagnosis for this admission?: Yes Plan: Since recent ultrasound was stable we will check the TSH and free T4 - Time Time Spent with patient: 15-24 minutes Medications reviewed and adjusted accordingly: Yes Anticipated discharge: Home Within: Other - Inpatient Certification Medical Necessity: Need Close Monitoring Due to Risk of Patient Decompensation Post Hospital Care: D/C Hyper[facility] Documentation - Plan Summary Plan Summary: Discussed with the patient and the family about all the current conditions with coordinate care with the cardiology and gastroenterology
[2017-04-02] MEDS ORDERED: DIGOXIN INJ 0.5 MG/2 ML AMPULE IV ONE (08:30)
[2017-04-02] MEDS ORDERED: DEXTROSE 40% GEL 15 GM TUBE PO PRN ×2 (08:43)
[2017-04-02] MEDS ORDERED: DEXTROSE 50%-WATER 25 GM/50 ML DISP.SYRIN IV PRN ×2 (08:43)
[2017-04-02] MEDS ORDERED: GLUCAGON,HUMAN RECOMB 1 MG INJ SUBCUT PRN (08:43)
--- NOTE | 2017-04-02 09:14 | EKG REPORT ---
SEVERITY:- ABNORMAL ECG - ATRIAL FIBRILLATION LEFT ANTERIOR FASCICULAR BLOCK BORDERLINE PROLONGED QT INTERVAL : Confirmed by: Morelia Finch MD 02-Apr-2017 09:13:53
[2017-04-02] MEDS: METOPROLOL TARTRATE PF/INJ 5 MG/5 ML SDV IV PRN ×5 (09:23→12:39)
[2017-04-02] MEDS: FUROSEMIDE INJ/PF 20 MG/2 ML SDV IV SCH ×2 (09:23→22:16)
[2017-04-02] MEDS ORDERED: ENOXAPARIN SODIUM INJ 40 MG/0.4 ML DISP.SYRIN SUBCUT SCH (10:00)
[2017-04-02] MEDS ORDERED: PROPOFOL INJ 200 MG/20 ML VIAL IV ONE (11:38)
[2017-04-02] MEDS ORDERED: METOPROLOL TARTRATE PF/INJ 5 MG/5 ML SDV IV ONE (13:29)
--- NOTE | 2017-04-02 13:39 | PDOC CONSULTATION ---
Consultation Consult Date: 04/02/17 Attending physician:: SANDRA LYNN Consult reason:: Atrial fibrillation and preop clearance History of Present Illness Admission Date/PCP: 04/01/17 11:04 SANDRA LYNN MD Patient complains of: Shortness of breath History of Present Illness: patient was admitted by Dr Lynn recently had seen Dr Peña, patient found to be in A fib and procedure was defered then saw Dr Simpson and was started on rate control and Eliquis medication. This was last week but patient could not fill up the medications because of problems with pharmacy. Patient subsequently started to feel weak and patient noted to be anemic. Patient denies seeing any blood in urine, vagina or having any hematemesis Patient subsequently was scheduled for an EGD and colonoscopy. She has had her Eliquis stopped and is now on Lovenox patient willing to have the procedure done while in the hospital. This history was reviewed and confirmed. In fact patient was seen in the office with my physician psychiatric nursing assistant yesterday and was referred to the emergency room for subsequent admission. Patient is denying any chest pain. She is denying any shortness of breath. This morning patient noted to have elevated blood pressure. I did get a call from anesthesiologist this morning as well as cork sorter regarding patient heart rate being high. Patient was seen earlier this morning rounds and IV Lopressor orders were written. Dr. Lynn had already given IV digoxin orders. Patient is anxious for the procedure and does wants to get it done. Patient again seen at around 1230 at which time her heart rate was noted to be reasonably well controlled. Patient looked comfortable. Past Medical History Cardiac Medical History: Reports: Atrial Fibrillation, Hypertension Pulmonary Medical History: Denies: Tuberculosis EENT Medical History: Reports: Other Endocrine Medical History: Reports: Other Musculoskeltal Medical History: Reports: Arthritis Hematology: Reports: Other Past Surgical History Past Surgical History: Reports: Orthopedic Surgery - back Denies: Pacemaker Social History Information Source: Patient Smoking Status: Never Smoker Frequency of Alcohol Use: None Hx Recreational Drug Use: No Drugs: None Hx Prescription Drug Abuse: No - Advance Directive Resuscitation Status: Full Code Surrogate healthcare decision maker:: Patient daughter and grandson is the surrogate decision-maker Family History Family History: Hypertension Parental Family History Reviewed: Yes Children Family History Reviewed: Yes Sibling(s) Family History Reviewed.: Yes Medication/Allergy Home Medications: Apixaban [Eliquis 5 mg Tablet] 5 mg PO Q12 04/01/17 Diltiazem HCl [Diltiazem 24Hr ER] 120 mg PO DAILY 04/01/17 Furosemide [Lasix 20 mg Tablet] 20 mg PO DAILY 04/01/17 Hydrochlorothiazide [Hydrodiuril 12.5 mg Capsule] 12.5 mg PO DAILY 04/01/17 Lisinopril [Prinivil 40 mg Tablet] 40 mg PO DAILY 04/01/17 Allergies/Adverse Reactions: Sulfa (Sulfonamide Antibiotics) Allergy (Intermediate, Verified 03/04/17 18:06) Review of Systems Review of Systems: Please see history of present illness and past medical history as wall. Constitutional: No fever or chills reported. Head : No recent chronic headaches, recent head injury. Eyes: No recent eye pain, diplopia, redness, discharge, acute visual changes. Ears: No recent chronic ear pain, acute hearing loss, ear discharge. Oral cavity: No recent ulcerations, bleeding, oral cavity discomfort. Neck: No recent acute neck pain reported. Hematologic: No recent easy bruising or bleeding or hematologic malignancy reported. Lymphatic: No recent lymphatic malignancy, chronic lymphadenopathy reported yet Cardiovascular system review: See history of present illness. Respiratory system review: No recent chronic cough, hemoptysis, blood clots in the lungs reported. Mild Shortness of breath on exertion Gastrointestinal system review: Negative for any recent acute or chronic abdominal pain, hematemesis, melena, recent change in bowel habits. Genitourinary system review: No recent acute or chronic hematuria, flank pain, UTI etc. reported. Skin system review: Negative for any recent abnormal bruising, no rash, no pruritus reported. Neurologic: No prior history of strokes, mini strokes, seizure disorder. Psychologic: No history of major psychosis or major depression reported. Musculoskeletal: Minor aches and pains reported. No acute joint swelling reported. Endocrine: No recent polyuria, polydipsia, recent heat or cold intolerance. Physical Exam Vital Signs: Temp Pulse Resp BP Pulse Ox 97.7 F 95 20 107/79 100 04/02/17 10:43 04/02/17 13:00 04/02/17 10:43 04/02/17 13:01 04/02/17 10:43 Intake & Output 04/01/17 04/02/17 04/03/17 06:59 06:59 06:59 Intake Total 960 0 Balance 960 0 Weight 109 kg Exam: GENERAL: well-nourished and in no acute distress. Alert and oriented x3 HEAD: Atraumatic, normocephalic. EYES: Pupils equal round and reactive to light, extraocular movements intact, sclera anicteric, conjunctiva are normal. ENT: TMs normal, nares patent, oropharynx clear without exudates. Moist mucous membranes. No oral ulcerations or bleeding gums noted NECK: supple without lymphadenopathy. Trachea is central. No cervical or axillary lymphadenopathy noted. Carotids are 2+, JVD WNL LUNGS: Respiration seems nonlabored, no significant accessory muscle action noted. Breath sounds clear to auscultation bilaterally and equal noted. No wheezes rales or rhonchi noted. No significant dullness noted on percussion. CHEST: Palpation of the chest wall shows no significant chest wall tenderness. No other significant abnormalities noted. 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 ABDOMEN: Soft, no significant tenderness appreciated, normoactive bowel sounds. No guarding, no rebound. No rigidity noted . No masses appreciated. EXTREMITIES: Pedal pulses are 1-2+, no calf tenderness noted. No clubbing or cyanosis. 1+ pedal edema noted NEUROLOGICAL: Focused neurological exam showed no significant neurologic deficit. Normal speech, no focal weakness appreciated. PSYCH: Normal mood, normal affect. Judgment and insight within normal limits. SKIN: No significant ecchymosis, rash, ulcerations or signs of pruritus noted. MUSCULOSKELETAL EXAM: No significant joint swelling noted. Results Laboratory Results: 04/02/17 05:49 04/02/17 05:49 04/02/17 04/02/17 05:49 05:49 WBC 5.0 RBC 3.53 L Hgb 9.6 L Hct 29.5 L MCV 84 MCH 27.3 MCHC 32.6 RDW 13.9 Plt Count 127 L Seg Neutrophils % 65.3 Lymphocytes % 24.7 Monocytes % 7.0 Eosinophils % 2.4 Basophils % 0.6 Absolute Neutrophils 3.3 Absolute Lymphocytes 1.2 Absolute Monocytes 0.4 Absolute Eosinophils 0.1 Absolute Basophils 0.0 Sodium 142.1 Potassium 4.2 Chloride 108 H Carbon Dioxide 23 Anion Gap 11 BUN 46 H Creatinine 1.30 H Est GFR ( Amer) 49 L Est GFR (Non-Af Amer) 40 L Glucose 104 Calcium 8.9 Magnesium 1.8 04/01/17 04/01/17 04/01/17 11:11 11:11 18:30 Creatine Kinase 108 84 CK-MB (CK-2) 1.41 Troponin I 0.039 NT-Pro-B Natriuret Pep 8480 H 04/01/17 04/02/17 04/02/17 18:30 01:08 01:08 Creatine Kinase 106 CK-MB (CK-2) 1.20 1.42 Troponin I 0.040 0.038 NT-Pro-B Natriuret Pep 04/02/17 05:49 Creatine Kinase CK-MB (CK-2) Troponin I NT-Pro-B Natriuret Pep 4810 H EKG Comments: Atrial fibrillation with rapid ventricular response but no acute ST-T wave changes are noted. Impressions: Chest X-Ray 04/01/17 10:37 IMPRESSION: Borderline cardiomegaly without failure. Assessment & Plan - Diagnosis (1) Atrial fibrillation with rapid ventricular response Is this a current diagnosis for this admission?: Yes (2) Congestive heart failure Qualifiers: Congestive heart failure type: unspecified congestive heart failure type Congestive heart failure chronicity: acute Qualified Code(s): I50.9 - Heart failure, unspecified Is this a current diagnosis for this admission?: Yes (3) Hyperlipidemia Qualifiers: Hyperlipidemia type: unspecified Qualified Code(s): E78.5 - Hyperlipidemia , unspecified Is this a current diagnosis for this admission?: Yes (4) Hypertension Qualifiers: Hypertension type: essential hypertension Qualified Code(s): I10 - Essential (primary) hypertension Is this a current diagnosis for this admission?: Yes (5) Preoperative cardiovascular examination Is this a current diagnosis for this admission?: Yes - Notes Notes: Preop cardiovascular examination: Patient currently stable without any active angina. Chest x-ray yesterday negative for CHF. Patient does have elevated BNP level therefore may have predominantly right-sided CHF but currently patient seems compensated by clinical exam. EKG is not showing any active ST segment changes and patient chest pain-free. At this point feel patient is cleared for colonoscopy and endoscopy procedure with average risk. Should patient have high RVR, OR could use IV esmolol or keep giving IV Lopressor. May also increase Cardizem drip for rate. Will be happy to provide any coverage if needed. Atrial fibrillation with rapid ventricular response: Continue Cardizem and IV Lopressor as needed for rate control. Would recommend keeping heart rate below 110. Off note, patient does tolerate higher rate without any significant symptoms. Continue chronic anticoagulation. Would consider cardioversion and ablation therapy after 3-4 weeks of adequate anticoagulation. CHF: Continue IV Lasix. This morning patient seems compensated. Chest x-ray from yesterday showed no significant pulmonary venous congestion. 2D echo shows well-preserved LVEF. Hypertension: Blood pressure is well controlled. Dyslipidemia: Continue statin therapy. - Time Time Spent: 30 to 50 Minutes - CODE STATUS was discussed, patient remains full code. Surrogate decision-maker unchanged. Multiple medical problems were addressed. More than 50% of the time spent coordinating care, discussing management plans with involved caregivers. Management plans discussed with involved personnels. Medical decision making was of moderate to high complexity , patient's has multiple comorbidities. Medications reviewed and adjusted accordingly: Yes
[2017-04-02] MEDS ORDERED: MIDAZOLAM 2 MG/2 ML INJ ONE (14:15)
[2017-04-02] MEDS ORDERED: DIPHENHYDRAMINE HCL 50 MG/ML VIAL IV PRN (15:01)
[2017-04-02] MEDS ORDERED: OXYCODONE-ACETAMINOPHEN 5-325 MG TABLET PO PRN ×2 (15:01)
[2017-04-02] MEDS ORDERED: MEPERIDINE HCL/PF INJ 25 MG/1 ML DISP.SYRIN IV PRN (15:01)
[2017-04-02] MEDS ORDERED: MORPHINE SULFATE 10 MG/ML INJ IV PRN (15:01)
[2017-04-02] MEDS ORDERED: PROMETHAZINE HCL INJ 25 MG/1 ML VIAL IV PRN ×2 (15:01)
[2017-04-02] MEDS ORDERED: FENTANYL CITRATE INJ/PF 100 MCG/2 ML AMPUL IV PRN ×3 (15:01)
--- NOTE | 2017-04-02 15:29 | Operative Report ---
Operative Report DATE OF SURGERY: 04/02/17 Operative Report: The risks, benefits and alternatives of the procedure including risks of bleeding, perforation requiring surgery are explained to the patient detail and informed consent was obtained. Patient was taken to the operating room and placed in the left, lateral decubital position. Timeout was called. Propofol medications administered. A rectal examination was done which did not reveal any masses, tears or fissures. An Olympus videoscope was inserted in the patient's rectum. The scope was then carefully advanced all the way to the cecum. The cecum was identified by the usual anatomical landmarks including the ileocecal valve as well as the appendiceal office. Photodocumentation was obtained. The scope was then sequentially pulled back via the various segments of the colon including the ascending colon, hepatic flexure, transverse colon, splenic flexure, descending colon finding to the rectosigmoid portions of the colon. Retroflexion maneuvers performed. The risks benefits and alternatives of the procedure explained to the patient in detail and informed consent is obtained.A GIF Olympus video scope was inserted into the patient's mouth and hypopharynx, the esophagus is identified intubated and insufflated, the scope was then advanced through the esophagus stomach and duodenum, retroflexion maneuver is done, the esophagus stomach and first and second portions of the duodenum examined PREOPERATIVE DIAGNOSIS: Possible GI bleeding POSTOPERATIVE DIAGNOSIS: Right side colon AVMs ablated. Internal hemorrhoids. Mild gastritis status post biopsy rule out Helicobacter pylori OPERATION: Colonoscopy with ablation. EGD with biopsy SURGEON: SONY EISENBERG ANESTHESIA: LMAC TISSUE REMOVED OR ALTERED: Gastric mucosal specimen obtained COMPLICATIONS: None. ESTIMATED BLOOD LOSS: None. INTRAOPERATIVE FINDINGS: As described above. PROCEDURE: Patient tolerated procedure well. No immediate postprocedure complications are noted. Patient sent back to her room in good condition. She can resume her anticoagulation. We will continue to provide her rate control medication. We will wait on pathology. Follow H&H. Resume previous diet
[2017-04-02] MEDS: ACETAMINOPHEN 325 MG TABLET PO PRN (19:01)
[2017-04-02] MEDS ORDERED: METOPROLOL SUCCINATE 25 MG TAB.SR.24H PO ONE (22:00)
[2017-04-03 05:15] LABS: HEMATOCRIT 29.2 % (36.0-47.0); HEMOGLOBIN 9.5 g/dL (12.0-15.5); HGB HCT DIFFERENCE -0.7; MEAN CORPUSCULAR HEMOGLOBIN 27.3 pg (27.0-33.4); MEAN CORPUSCULAR HGB CONC 32.5 g/dL (32.0-36.0); MEAN CORPUSCULAR VOLUME 84 fl (80-97); RED BLOOD COUNT 3.49 10^6/uL (3.72-5.28); RED CELL DISTRIBUTION WIDTH 13.9 % (11.5-14.0); WHITE BLOOD COUNT 5.3 10^3/uL (4.0-10.5)
[2017-04-03] MEDS: DILTIAZEM HCL/D5W 125 MG/125 ML RTUINJ IV PRN (05:28)
[2017-04-03 05:38] LABS: ANION GAP 10 (5-19); BLOOD UREA NITROGEN 42 mg/dL (7-20); CARBON DIOXIDE 26 mmol/L (22-30); CHLORIDE 107 mmol/L (98-107); GLUCOSE 162 mg/dL (75-110); POTASSIUM 4.2 mmol/L (3.6-5.0); SODIUM 142.5 mmol/L (137-145)
[2017-04-03] MEDS: METOPROLOL TARTRATE PF/INJ 5 MG/5 ML SDV IV PRN (08:06)
[2017-04-03] MEDS ORDERED: FUROSEMIDE 20 MG TABLET PO SCH (08:15)
[2017-04-03] MEDS ORDERED: METOPROLOL SUCCINATE 25 MG TAB.SR.24H PO SCH ×3 (10:00)
--- NOTE | 2017-04-03 10:41 | PDOC PROGRESS REPORT ---
Subjective Progress Note for:: 04/03/17 Subjective:: Patient seems to be doing better with gradual improvement. Pt is denying any chest arm or neck discomfort. Patient denying any PND, orthopnea. Patient denied any sustained palpitations, dizziness, syncope, near syncope. Patient denying any fever chills. Patient denying any other significant discomfort. Patient is maintaining atrial fibrillation: Heart rate under better control. Review of systems: Rest review of systems negative. Medications: Medications have been reviewed. Physical Exam Vital Signs: Temp Pulse Resp BP Pulse Ox 98.6 F 123 H 16 108/82 96 04/03/17 08:08 04/03/17 09:57 04/03/17 09:57 04/03/17 08:01 04/03/17 09:57 Intake & Output 04/02/17 04/03/17 04/04/17 06:59 06:59 06:59 Intake Total 960 2460 Output Total 0 Balance 960 2460 Weight 109 kg Exam: GENERAL: well-nourished and in no acute distress. Alert and oriented x3 HEAD: Atraumatic, normocephalic. EYES: Pupils equal round and reactive to light, extraocular movements intact, sclera anicteric, conjunctiva are normal. ENT: TMs normal, nares patent, oropharynx clear without exudates. Moist mucous membranes. No oral ulcerations or bleeding gums noted NECK: supple without lymphadenopathy. Trachea is central. No cervical or axillary lymphadenopathy noted. Carotids are 2+, JVD WNL LUNGS: Respiration seems nonlabored, no significant accessory muscle action noted. Breath sounds clear to auscultation bilaterally and equal noted. No wheezes rales or rhonchi noted. No significant dullness noted on percussion. CHEST: Palpation of the chest wall shows no significant chest wall tenderness. No other significant abnormalities noted. 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 ABDOMEN: Soft, no significant tenderness appreciated, normoactive bowel sounds. No guarding, no rebound. No rigidity noted . No masses appreciated. EXTREMITIES: Pedal pulses are 1-2+, no calf tenderness noted. No clubbing or cyanosis.trace to 1+ pedal edema noted NEUROLOGICAL: Focused neurological exam showed no significant neurologic deficit. Normal speech, no focal weakness appreciated. PSYCH: Normal mood, normal affect. Judgment and insight within normal limits. SKIN: No significant ecchymosis, rash, ulcerations or signs of pruritus noted. MUSCULOSKELETAL EXAM: No significant joint swelling noted. Results Laboratory Results: 04/03/17 04:22 04/03/17 04:22 04/03/17 04/03/17 04:22 04:22 WBC 5.3 RBC 3.49 L Hgb 9.5 L Hct 29.2 L MCV 84 MCH 27.3 MCHC 32.5 RDW 13.9 Plt Count 125 L Sodium 142.5 Potassium 4.2 Chloride 107 Carbon Dioxide 26 Anion Gap 10 BUN 42 H Creatinine 1.50 H Est GFR ( Amer) 41 L Est GFR (Non-Af Amer) 34 L Glucose 162 H Calcium 9.0 04/01/17 04/01/17 04/01/17 11:11 11:11 18:30 Creatine Kinase 108 84 CK-MB (CK-2) 1.41 Troponin I 0.039 NT-Pro-B Natriuret Pep 8480 H 04/01/17 04/02/17 04/02/17 18:30 01:08 01:08 Creatine Kinase 106 CK-MB (CK-2) 1.20 1.42 Troponin I 0.040 0.038 NT-Pro-B Natriuret Pep 04/02/17 05:49 Creatine Kinase CK-MB (CK-2) Troponin I NT-Pro-B Natriuret Pep 4810 H Impressions: Chest X-Ray 04/01/17 10:37 IMPRESSION: Borderline cardiomegaly without failure. Assessment & Plan - Diagnosis (1) Atrial fibrillation with rapid ventricular response Is this a current diagnosis for this admission?: Yes (2) Congestive heart failure Qualifiers: Congestive heart failure type: unspecified congestive heart failure type Congestive heart failure chronicity: acute Qualified Code(s): I50.9 - Heart failure, unspecified Is this a current diagnosis for this admission?: Yes (3) Hyperlipidemia Qualifiers: Hyperlipidemia type: unspecified Qualified Code(s): E78.5 - Hyperlipidemia , unspecified Is this a current diagnosis for this admission?: Yes (4) Hypertension Qualifiers: Hypertension type: essential hypertension Qualified Code(s): I10 - Essential (primary) hypertension Is this a current diagnosis for this admission?: Yes (5) Preoperative cardiovascular examination Is this a current diagnosis for this admission?: Yes (6) Sleep disorder Is this a current diagnosis for this admission?: Yes (7) Obesity Qualifiers: Body mass index: unspecified BMI Is this a current diagnosis for this admission?: Yes - Notes Notes: Atrial fibrillation with RVR: Atrial fibrillation now seems persistent. Continue with rate control and chronic anticoagulation. For better rate control , recommend switching from carvedilol to metoprolol succinate. Today I have increase metoprolol succinate to 25 mg p.o. every 12. Patient continues on Cardizem drip and also some p.o. Cardizem. CHF: Secondary to diastolic dysfunction and being aggravated by atrial fibrillation. Continue diuretic therapy. Dyslipidemia: Currently stable continue statin therapy. Hypertension: Blood pressure goal is 135/85 or less. Currently stable. Obesity: Patient will benefit from weight loss. Sleep disorder: Patient will benefit from a sleep study. Discussed that she has high probability of having underlying sleep apnea syndrome. - Time Time with patient: 15-25 minutes - CODE STATUS was discussed, patient remains full code. Surrogate decision-maker unchanged. Multiple medical problems were addressed. More than 50% of the time spent coordinating care, discussing management plans with involved caregivers. Management plans discussed with involved personnels. Medical decision making was of moderate to high complexity , patient's has multiple comorbidities. Medications reviewed and adjusted accordingly: Yes
[2017-04-03] MEDS: METOPROLOL SUCCINATE 25 MG TAB.SR.24H PO SCH ×2 (11:34→21:32)
[2017-04-03] MEDS: DILTIAZEM HCL 120 MG CAP.SR.24H PO SCH (11:34)
[2017-04-03] MEDS: FERROUS SULFATE 325 MG TABLET PO SCH (11:34)
[2017-04-03] MEDS: FUROSEMIDE 20 MG TABLET PO SCH (11:35)
[2017-04-03] MEDS: APIXABAN 5 MG TABLET PO SCH ×2 (11:35→21:31)
[2017-04-03] MEDS: ACETAMINOPHEN 325 MG TABLET PO PRN ×2 (13:34→21:44)
--- NOTE | 2017-04-03 14:03 | PDOC PROGRESS REPORT ---
Subjective Progress Note for:: 04/03/17 Subjective:: Normal patients underwent for the endoscopy and colonoscopy and the patient underwent for the AVM ablations which is most likely source of the anemia Patient still currently on a Cardizem drip Patient's denied any chest pain without any shortness of the breath No abdominal pain no nausea no vomiting Discussed with the patient's family on the bedside Physical Exam Vital Signs: Temp Pulse Resp BP Pulse Ox 98.8 F 68 19 118/92 H 100 04/03/17 12:35 04/03/17 12:35 04/03/17 12:35 04/03/17 12:02 04/03/17 12:35 Intake & Output 04/02/17 04/03/17 04/04/17 06:59 06:59 06:59 Intake Total 960 2460 238 Output Total 0 1000 Balance 960 2460 -762 Weight 109 kg General appearance: PRESENT: no acute distress, well-developed, well-nourished Head exam: PRESENT: atraumatic, normocephalic Eye exam: PRESENT: conjunctiva pink, EOMI, PERRLA. ABSENT: scleral icterus Ear exam: PRESENT: normal external ear exam Mouth exam: PRESENT: moist, tongue midline Neck exam: PRESENT: full ROM. ABSENT: carotid bruit, JVD, lymphadenopathy, thyromegaly Respiratory exam: PRESENT: clear to auscultation mary Cardiovascular exam: PRESENT: RRR. ABSENT: diastolic murmur, rubs, systolic murmur Pulses: PRESENT: normal dorsalis pedis pul, +2 pedal pulses bilateral Vascular exam: PRESENT: normal capillary refill GI/Abdominal exam: PRESENT: normal bowel sounds, soft. ABSENT: distended, guarding, mass, organolmegaly, rebound, tenderness Rectal exam: PRESENT: deferred Neurological exam: PRESENT: alert, awake, oriented to person, oriented to place , oriented to time, oriented to situation, CN II-XII grossly intact. ABSENT: motor sensory deficit Psychiatric exam: PRESENT: appropriate affect, normal mood. ABSENT: homicidal ideation, suicidal ideation Skin exam: PRESENT: dry, intact, warm. ABSENT: cyanosis, rash Results Laboratory Results: 04/03/17 04:22 04/03/17 04:22 04/03/17 04/03/17 04/03/17 04:22 04:22 10:50 WBC 5.3 RBC 3.49 L Hgb 9.5 L Hct 29.2 L MCV 84 MCH 27.3 MCHC 32.5 RDW 13.9 Plt Count 125 L Sodium 142.5 Potassium 4.2 Chloride 107 Carbon Dioxide 26 Anion Gap 10 BUN 42 H Creatinine 1.50 H Est GFR ( Amer) 41 L Est GFR (Non-Af Amer) 34 L Glucose 162 H Calcium 9.0 Stool Occult Blood NEGATIVE 04/01/17 04/01/17 04/01/17 11:11 11:11 18:30 Creatine Kinase 108 84 CK-MB (CK-2) 1.41 Troponin I 0.039 NT-Pro-B Natriuret Pep 8480 H 04/01/17 04/02/17 04/02/17 18:30 01:08 01:08 Creatine Kinase 106 CK-MB (CK-2) 1.20 1.42 Troponin I 0.040 0.038 NT-Pro-B Natriuret Pep 04/02/17 05:49 Creatine Kinase CK-MB (CK-2) Troponin I NT-Pro-B Natriuret Pep 4810 H Impressions: Chest X-Ray 04/01/17 10:37 IMPRESSION: Borderline cardiomegaly without failure. Assessment & Plan - Diagnosis (1) Atrial fibrillation with rapid ventricular response Is this a current diagnosis for this admission?: Yes Plan: Will continues the Cardizem drip and try to wean off and put the p.o. medications as per cardiology suggest Will DC the Lovenox and start on Eliquis 5 mg p.o. twice a day (2) Congestive heart failure Qualifiers: Congestive heart failure type: unspecified congestive heart failure type Congestive heart failure chronicity: acute Qualified Code(s): I50.9 - Heart failure, unspecified Is this a current diagnosis for this admission?: Yes Plan: Will DC the IV Lasix will creatinine is getting worse and the patient's symptom is all improved from the p.o. 20 mg Lasix (3) SOB Is this a current diagnosis for this admission?: Yes Plan: Due to the above condition is currently all improving (4) Hypertension Qualifiers: Hypertension type: essential hypertension Qualified Code(s): I10 - Essential (primary) hypertension Is this a current diagnosis for this admission?: Yes Plan: Currently stable (5) Chronic back pain Qualifiers: Back pain location: low back pain Is this a current diagnosis for this admission?: Yes Plan: Since currently see a pain management (6) Hyperlipidemia Qualifiers: Hyperlipidemia type: unspecified Qualified Code(s): E78.5 - Hyperlipidemia , unspecified Is this a current diagnosis for this admission?: Yes Plan: Continues to current medication (7) Multinodular goiter Is this a current diagnosis for this admission?: Yes Plan: Since recent ultrasound was stable we will check the TSH and free T4 - Time Time Spent with patient: 15-24 minutes Medications reviewed and adjusted accordingly: Yes Anticipated discharge: Home Within: within 48 hours - Inpatient Certification Medical Necessity: Need Close Monitoring Due to Risk of Patient Decompensation 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
--- NOTE | 2017-04-04 02:08 | EKG REPORT ---
SEVERITY:- ABNORMAL ECG - SINUS RHYTHM LEFT ANTERIOR FASCICULAR BLOCK : Confirmed by: Morelia Finch MD 04-Apr-2017 02:07:52
[2017-04-04 05:39] LABS: ABSOLUTE EOSINOPHILS # (AUTO) 0.1 10^3/uL (0.0-0.6); ABSOLUTE LYMPHOCYTES (AUTO) 0.9 10^3/uL (0.5-4.7); ABSOLUTE MONOCYTES (AUTO) 0.4 10^3/uL (0.1-1.4); BASOPHILS % (AUTO) 0.8 % (0-2); EOSINOPHILS % (AUTO) 2.3 % (0-6); HEMATOCRIT 28.9 % (36.0-47.0); HEMOGLOBIN 9.5 g/dL (12.0-15.5); HGB HCT DIFFERENCE -0.4; LYMPHOCYTES % (AUTO) 16.9 % (13-45); MEAN CORPUSCULAR HEMOGLOBIN 27.5 pg (27.0-33.4); MEAN CORPUSCULAR HGB CONC 32.9 g/dL (32.0-36.0); MEAN CORPUSCULAR VOLUME 84 fl (80-97); RED BLOOD COUNT 3.47 10^6/uL (3.72-5.28); RED CELL DISTRIBUTION WIDTH 14.1 % (11.5-14.0); WHITE BLOOD COUNT 5.5 10^3/uL (4.0-10.5)
[2017-04-04 06:07] LABS: ANION GAP 9 (5-19); BLOOD UREA NITROGEN 36 mg/dL (7-20); CALCIUM 9.5 mg/dL (8.4-10.2); CARBON DIOXIDE 26 mmol/L (22-30); CHLORIDE 108 mmol/L (98-107); CREATININE RESULT 1.27 mg/dL (0.52-1.25); GLUCOSE 111 mg/dL (75-110); POTASSIUM 4.4 mmol/L (3.6-5.0)
[2017-04-04] MEDS: METOPROLOL SUCCINATE 25 MG TAB.SR.24H PO SCH ×2 (09:25→22:17)
[2017-04-04] MEDS: DILTIAZEM HCL 120 MG CAP.SR.24H PO SCH ×2 (09:25→22:17)
[2017-04-04] MEDS: FUROSEMIDE 20 MG TABLET PO SCH (09:25)
[2017-04-04] MEDS: ACETAMINOPHEN 325 MG TABLET PO PRN ×2 (09:26→22:16)
[2017-04-04] MEDS: FERROUS SULFATE 325 MG TABLET PO SCH (09:26)
[2017-04-04] MEDS: APIXABAN 5 MG TABLET PO SCH ×2 (09:27→22:17)
[2017-04-04] MEDS: DILTIAZEM HCL/D5W 125 MG/125 ML RTUINJ IV PRN (09:29)
--- NOTE | 2017-04-04 12:01 | PDOC PROGRESS REPORT ---
Subjective Progress Note for:: 04/04/17 Subjective:: Patient seems to be doing better with gradual improvement. Pt is denying any chest arm or neck discomfort. Patient denying any PND, orthopnea. Patient denied any sustained palpitations, dizziness, syncope, near syncope. Patient denying any fever chills. Patient denying any other significant discomfort. Patient converted to sinus rhythm. Heart rate under better control. Review of systems: Rest review of systems negative. Medications: Medications have been reviewed. Physical Exam Vital Signs: Temp Pulse Resp BP Pulse Ox 97.8 F 72 24 H 134/62 H 96 04/04/17 04:39 04/04/17 04:39 04/04/17 04:39 04/04/17 04:39 04/04/17 04:39 Intake & Output 04/03/17 04/04/17 04/05/17 06:59 06:59 06:59 Intake Total 2460 927 Output Total 0 1000 Balance 2460 -73 Weight 111.9 kg Exam: GENERAL: well-nourished and in no acute distress. Alert and oriented x3 HEAD: Atraumatic, normocephalic. EYES: Pupils equal round and reactive to light, extraocular movements intact, sclera anicteric, conjunctiva are normal. ENT: TMs normal, nares patent, oropharynx clear without exudates. Moist mucous membranes. No oral ulcerations or bleeding gums noted NECK: supple without lymphadenopathy. Trachea is central. No cervical or axillary lymphadenopathy noted. Carotids are 2+, JVD WNL LUNGS: Respiration seems nonlabored, no significant accessory muscle action noted. Breath sounds clear to auscultation bilaterally and equal noted. No wheezes rales or rhonchi noted. No significant dullness noted on percussion. CHEST: Palpation of the chest wall shows no significant chest wall tenderness. No other significant abnormalities noted. HEART: [place] [employer], No PSH, 1/6 LIONEL aortic area, 1/6 kaur systolic murmur mitral area, no rubs, no gallops. ABDOMEN: Soft, no significant tenderness appreciated, normoactive bowel sounds. No guarding, no rebound. No rigidity noted . No masses appreciated. EXTREMITIES: Pedal pulses are 1-2+, no calf tenderness noted. No clubbing or cyanosis.trace to 1+ pedal edema noted NEUROLOGICAL: Focused neurological exam showed no significant neurologic deficit. Normal speech, no focal weakness appreciated. PSYCH: Normal mood, normal affect. Judgment and insight within normal limits. SKIN: No significant ecchymosis, rash, ulcerations or signs of pruritus noted. MUSCULOSKELETAL EXAM: No significant joint swelling noted. Results Laboratory Results: 04/04/17 05:13 04/04/17 05:13 04/04/17 04/04/17 05:13 05:13 WBC 5.5 RBC 3.47 L Hgb 9.5 L Hct 28.9 L MCV 84 MCH 27.5 MCHC 32.9 RDW 14.1 H Plt Count 115 L Seg Neutrophils % 73.0 Lymphocytes % 16.9 Monocytes % 7.0 Eosinophils % 2.3 Basophils % 0.8 Absolute Neutrophils 4.0 Absolute Lymphocytes 0.9 Absolute Monocytes 0.4 Absolute Eosinophils 0.1 Absolute Basophils 0.0 Sodium 143.0 Potassium 4.4 Chloride 108 H Carbon Dioxide 26 Anion Gap 9 BUN 36 H Creatinine 1.27 H Est GFR ( Amer) 50 L Est GFR (Non-Af Amer) 41 L Glucose 111 H Calcium 9.5 04/01/17 04/01/17 04/01/17 11:11 11:11 18:30 Creatine Kinase 108 84 CK-MB (CK-2) 1.41 Troponin I 0.039 NT-Pro-B Natriuret Pep 8480 H 04/01/17 04/02/17 04/02/17 18:30 01:08 01:08 Creatine Kinase 106 CK-MB (CK-2) 1.20 1.42 Troponin I 0.040 0.038 NT-Pro-B Natriuret Pep 04/02/17 04/04/17 05:49 05:13 Creatine Kinase CK-MB (CK-2) Troponin I NT-Pro-B Natriuret Pep 4810 H 3150 H Impressions: Chest X-Ray 04/01/17 10:37 IMPRESSION: Borderline cardiomegaly without failure. Assessment & Plan - Diagnosis (1) Atrial fibrillation with rapid ventricular response Is this a current diagnosis for this admission?: Yes (2) Congestive heart failure Qualifiers: Congestive heart failure type: unspecified congestive heart failure type Congestive heart failure chronicity: acute Qualified Code(s): I50.9 - Heart failure, unspecified Is this a current diagnosis for this admission?: Yes (3) Hyperlipidemia Qualifiers: Hyperlipidemia type: unspecified Qualified Code(s): E78.5 - Hyperlipidemia , unspecified Is this a current diagnosis for this admission?: Yes (4) Hypertension Qualifiers: Hypertension type: essential hypertension Qualified Code(s): I10 - Essential (primary) hypertension Is this a current diagnosis for this admission?: Yes (5) Preoperative cardiovascular examination Is this a current diagnosis for this admission?: Yes (6) Sleep disorder Is this a current diagnosis for this admission?: Yes (7) Obesity Qualifiers: Body mass index: unspecified BMI Is this a current diagnosis for this admission?: Yes - Notes Notes: Atrial fibrillation with RVR: Converted to sinus rhythm. Continue with rate control and chronic anticoagulation. For better rate control, recommend switching from carvedilol to metoprolol succinate. Continue metoprolol succinate to 25 mg p.o. every 12. Continue p.o. Cardizem. Patient being placed on Cardizem CD 120 mg p.o. twice daily. CHF: Secondary to diastolic dysfunction and being aggravated by atrial fibrillation. Continue diuretic therapy. Dyslipidemia: Currently stable continue statin therapy. Hypertension: Blood pressure goal is 135/85 or less. Currently stable. Obesity: Patient will benefit from weight loss. Sleep disorder: Patient will benefit from a sleep study. Discussed that she has high probability of having underlying sleep apnea syndrome. This was explained to the patient patient was noted to be snoring while sleeping. - Time Time with patient: 15-25 minutes - CODE STATUS was discussed, patient remains full code. Surrogate decision-maker unchanged. Multiple medical problems were addressed. More than 50% of the time spent coordinating care, discussing management plans with involved caregivers. Management plans discussed with involved personnels. Medical decision making was of moderate to high complexity , patient's has multiple comorbidities. Medications reviewed and adjusted accordingly: Yes
--- NOTE | 2017-04-04 19:58 | PDOC PROGRESS REPORT ---
Subjective Progress Note for:: 04/04/17 Subjective:: No chest pain. she reported some degree of SOB at rest and with exertion. No abdominal pain, nausea or vomiting. No fever or chills. Physical Exam Vital Signs: Temp Pulse Resp BP Pulse Ox 99.3 F 71 18 128/62 H 98 04/04/17 16:11 04/04/17 16:11 04/04/17 16:11 04/04/17 16:11 04/04/17 16:11 Intake & Output 04/03/17 04/04/17 04/05/17 06:59 06:59 06:59 Intake Total 2460 927 792 Output Total 0 1000 Balance 2460 -73 792 Weight 111.9 kg General appearance: PRESENT: no acute distress, mild distress - remain on supplemental oxygen at 2L/min via nasal cannula., obese Head exam: PRESENT: atraumatic, normocephalic Eye exam: PRESENT: conjunctiva pink, EOMI, PERRLA. ABSENT: scleral icterus Mouth exam: PRESENT: moist Respiratory exam: PRESENT: clear to auscultation mary, decreased breath sounds - at lung bases Cardiovascular exam: PRESENT: irregular rhythm, +S1, +S2, systolic murmur. ABSENT: diastolic murmur, rubs Murmur grade: 2 Vascular exam: PRESENT: normal capillary refill. ABSENT: pallor GI/Abdominal exam: PRESENT: normal bowel sounds, soft. ABSENT: distended, guarding, mass, organolmegaly, rebound, tenderness Extremities exam: PRESENT: pedal edema - bilateral 1+ Neurological exam: PRESENT: alert, awake, oriented to person, oriented to place , oriented to time, oriented to situation, CN II-XII grossly intact. ABSENT: motor sensory deficit Psychiatric exam: PRESENT: appropriate affect, normal mood. ABSENT: homicidal ideation, suicidal ideation Skin exam: PRESENT: dry, intact, warm. ABSENT: cyanosis, rash Results Laboratory Results: 04/04/17 05:13 04/04/17 05:13 04/04/17 04/04/17 05:13 05:13 WBC 5.5 RBC 3.47 L Hgb 9.5 L Hct 28.9 L MCV 84 MCH 27.5 MCHC 32.9 RDW 14.1 H Plt Count 115 L Seg Neutrophils % 73.0 Lymphocytes % 16.9 Monocytes % 7.0 Eosinophils % 2.3 Basophils % 0.8 Absolute Neutrophils 4.0 Absolute Lymphocytes 0.9 Absolute Monocytes 0.4 Absolute Eosinophils 0.1 Absolute Basophils 0.0 Sodium 143.0 Potassium 4.4 Chloride 108 H Carbon Dioxide 26 Anion Gap 9 BUN 36 H Creatinine 1.27 H Est GFR ( Amer) 50 L Est GFR (Non-Af Amer) 41 L Glucose 111 H Calcium 9.5 04/01/17 04/01/17 04/01/17 11:11 11:11 18:30 Creatine Kinase 108 84 CK-MB (CK-2) 1.41 Troponin I 0.039 NT-Pro-B Natriuret Pep 8480 H 04/01/17 04/02/17 04/02/17 18:30 01:08 01:08 Creatine Kinase 106 CK-MB (CK-2) 1.20 1.42 Troponin I 0.040 0.038 NT-Pro-B Natriuret Pep 04/02/17 04/04/17 05:49 05:13 Creatine Kinase CK-MB (CK-2) Troponin I NT-Pro-B Natriuret Pep 4810 H 3150 H Impressions: Chest X-Ray 04/01/17 10:37 IMPRESSION: Borderline cardiomegaly without failure. Assessment & Plan - Diagnosis (1) Atrial fibrillation with rapid ventricular response Is this a current diagnosis for this admission?: Yes Plan: See covering attending physician orders. (2) Congestive heart failure Qualifiers: Congestive heart failure type: unspecified congestive heart failure type Congestive heart failure chronicity: acute Qualified Code(s): I50.9 - Heart failure, unspecified Is this a current diagnosis for this admission?: Yes Plan: See covering attending physician orders. (3) Hyperlipidemia Qualifiers: Hyperlipidemia type: unspecified Qualified Code(s): E78.5 - Hyperlipidemia , unspecified Is this a current diagnosis for this admission?: Yes Plan: See covering attending physician orders. (4) Hypertension Qualifiers: Hypertension type: essential hypertension Qualified Code(s): I10 - Essential (primary) hypertension Is this a current diagnosis for this admission?: Yes Plan: See covering attending physician orders. (5) Multinodular goiter Is this a current diagnosis for this admission?: Yes Plan: See covering attending physician orders. - Time Time Spent with patient: 25-34 minutes Medications reviewed and adjusted accordingly: Yes Anticipated discharge: Home Within: Other - Inpatient Certification Medical Necessity: Need Close Monitoring Due to Risk of Patient Decompensation, Need For Continuous Telemetry Monitoring, Risk of Complication if Not Cared For in Hospital Post Hospital Care: D/C Career Counselor Documentation - Plan Summary Plan Summary: See covering attending physician orders.
[2017-04-05] MEDS: ACETAMINOPHEN 325 MG TABLET PO PRN (05:33)
[2017-04-05] MEDS: DILTIAZEM HCL 120 MG CAP.SR.24H PO SCH ×3 (08:16→22:01)
[2017-04-05] MEDS: FERROUS SULFATE 325 MG TABLET PO SCH (08:16)
[2017-04-05] MEDS: METOPROLOL SUCCINATE 25 MG TAB.SR.24H PO SCH ×2 (08:16→22:02)
[2017-04-05] MEDS: APIXABAN 5 MG TABLET PO SCH ×2 (08:17→22:00)
[2017-04-05] MEDS: FUROSEMIDE 20 MG TABLET PO SCH (08:17)
--- NOTE | 2017-04-05 16:51 | PDOC PROGRESS REPORT ---
Subjective Progress Note for:: 04/05/17 Subjective:: Patient seems to be doing better with gradual improvement. Pt is denying any chest arm or neck discomfort. Patient denying any PND, orthopnea. Patient denied any sustained palpitations, dizziness, syncope, near syncope. Patient denying any fever chills. Patient denying any other significant discomfort. Patient converted to sinus rhythm. Heart rate under better control. Review of systems: Rest review of systems negative. Medications: Medications have been reviewed. Physical Exam Vital Signs: Temp Pulse Resp BP Pulse Ox 98.1 F 72 18 127/64 H 100 04/05/17 11:02 04/05/17 14:00 04/05/17 11:02 04/05/17 11:02 04/05/17 11:02 Intake & Output 04/04/17 04/05/17 04/06/17 06:59 06:59 06:59 Intake Total 927 1329 10 Output Total 1000 Balance -73 1329 10 Weight 111.9 kg 111.1 kg Exam: GENERAL: well-nourished and in no acute distress. Alert and oriented x3 HEAD: Atraumatic, normocephalic. EYES: Pupils equal round and reactive to light, extraocular movements intact, sclera anicteric, conjunctiva are normal. ENT: TMs normal, nares patent, oropharynx clear without exudates. Moist mucous membranes. No oral ulcerations or bleeding gums noted NECK: supple without lymphadenopathy. Trachea is central. No cervical or axillary lymphadenopathy noted. Carotids are 2+, JVD WNL LUNGS: Respiration seems nonlabored, no significant accessory muscle action noted. Breath sounds clear to auscultation bilaterally and equal noted. No wheezes rales or rhonchi noted. No significant dullness noted on percussion. CHEST: Palpation of the chest wall shows no significant chest wall tenderness. No other significant abnormalities noted. 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 ABDOMEN: Soft, no significant tenderness appreciated, normoactive bowel sounds. No guarding, no rebound. No rigidity noted . No masses appreciated. EXTREMITIES: Pedal pulses are 1-2+, no calf tenderness noted. No clubbing or cyanosis.trace to 1+ pedal edema noted NEUROLOGICAL: Focused neurological exam showed no significant neurologic deficit. Normal speech, no focal weakness appreciated. PSYCH: Normal mood, normal affect. Judgment and insight within normal limits. SKIN: No significant ecchymosis, rash, ulcerations or signs of pruritus noted. MUSCULOSKELETAL EXAM: No significant joint swelling noted. Results Laboratory Results: 04/04/17 05:13 04/04/17 05:13 04/01/17 04/01/17 04/01/17 11:11 11:11 18:30 Creatine Kinase 108 84 CK-MB (CK-2) 1.41 Troponin I 0.039 NT-Pro-B Natriuret Pep 8480 H 04/01/17 04/02/17 04/02/17 18:30 01:08 01:08 Creatine Kinase 106 CK-MB (CK-2) 1.20 1.42 Troponin I 0.040 0.038 NT-Pro-B Natriuret Pep 04/02/17 04/04/17 05:49 05:13 Creatine Kinase CK-MB (CK-2) Troponin I NT-Pro-B Natriuret Pep 4810 H 3150 H Impressions: Chest X-Ray 04/01/17 10:37 IMPRESSION: Borderline cardiomegaly without failure. Assessment & Plan - Diagnosis (1) Atrial fibrillation with rapid ventricular response Is this a current diagnosis for this admission?: Yes (2) Congestive heart failure Qualifiers: Congestive heart failure type: unspecified congestive heart failure type Congestive heart failure chronicity: acute Qualified Code(s): I50.9 - Heart failure, unspecified Is this a current diagnosis for this admission?: Yes (3) Hyperlipidemia Qualifiers: Hyperlipidemia type: unspecified Qualified Code(s): E78.5 - Hyperlipidemia , unspecified Is this a current diagnosis for this admission?: Yes (4) Hypertension Qualifiers: Hypertension type: essential hypertension Qualified Code(s): I10 - Essential (primary) hypertension Is this a current diagnosis for this admission?: Yes (5) Preoperative cardiovascular examination Is this a current diagnosis for this admission?: Yes (6) Sleep disorder Is this a current diagnosis for this admission?: Yes (7) Obesity Qualifiers: Body mass index: unspecified BMI Is this a current diagnosis for this admission?: Yes - Notes Notes: Atrial fibrillation with RVR: Converted to sinus rhythm. Continue with rate control and chronic anticoagulation. For better rate control, recommend switching from carvedilol to metoprolol succinate. Continue metoprolol succinate to 25 mg p.o. every 12. Continue p.o. Cardizem. CHF: Secondary to diastolic dysfunction and being aggravated by atrial fibrillation. Continue diuretic therapy. Hopefully patient will maintain sinus rhythm. Dyslipidemia: Currently stable continue statin therapy. Hypertension: Blood pressure goal is 135/85 or less. Currently stable. Obesity: Patient will benefit from weight loss. Sleep disorder: Patient will benefit from a sleep study. Discussed that she has high probability of having underlying sleep apnea syndrome. This was explained to the patient. Anemia: Hemoglobin with and stable. Continue Eliquis therapy for chronic anticoagulation. Patient today encouraged to ambulate in the hallway and also try to lose weight. - Time Time with patient: Greater than 35 minutes - CODE STATUS was discussed, patient remains full code. Surrogate decision-maker unchanged. Multiple medical problems were addressed. More than 50% of the time spent coordinating care, discussing management plans with involved caregivers. Management plans discussed with involved personnels. Medical decision making was of moderate to high complexity, patient's has multiple comorbidities. Medications reviewed and adjusted accordingly: Yes
--- NOTE | 2017-04-05 18:50 | PDOC PROGRESS REPORT ---
Subjective Progress Note for:: 04/05/17 Subjective:: No chest pain or palpitation. She reported improvement in her shortness of breath. No abdominal pain, nausea or vomiting. No fever or chills. Physical Exam Vital Signs: Temp Pulse Resp BP Pulse Ox 99.3 F 66 18 125/57 L 97 04/05/17 16:24 04/05/17 16:24 04/05/17 16:24 04/05/17 16:24 04/05/17 16:24 Intake & Output 04/04/17 04/05/17 04/06/17 06:59 06:59 06:59 Intake Total 927 1329 10 Output Total 1000 Balance -73 1329 10 Weight 111.9 kg 111.1 kg Physical Exam: General appearance: PRESENT: no acute distress, mild distress - remain on supplemental oxygen at 2L/min via nasal cannula., obese Head exam: PRESENT: atraumatic, normocephalic Eye exam: PRESENT: conjunctiva pink, EOMI, PERRLA. ABSENT: scleral icterus Mouth exam: PRESENT: moist Respiratory exam: PRESENT: clear to auscultation mary, decreased breath sounds - at lung bases Cardiovascular exam: PRESENT: regular rhythm, +S1, +S2, systolic murmur. ABSENT : diastolic murmur, rubs Murmur grade: 2 Vascular exam: PRESENT: normal capillary refill. ABSENT: pallor GI/Abdominal exam: PRESENT: normal bowel sounds, soft. ABSENT: distended, guarding, mass, organomegaly, rebound, tenderness Extremities exam: PRESENT: pedal edema - bilateral 1+ Neurological exam: PRESENT: alert, awake, oriented to person, oriented to place , oriented to time, oriented to situation, CN II-XII grossly intact. ABSENT: motor sensory deficit Psychiatric exam: PRESENT: appropriate affect, normal mood. ABSENT: homicidal ideation, suicidal ideation Skin exam: PRESENT: dry, intact, warm. ABSENT: cyanosis, rash Murmur grade: 2 Results Laboratory Results: 04/04/17 05:13 04/04/17 05:13 04/01/17 04/01/17 04/01/17 11:11 11:11 18:30 Creatine Kinase 108 84 CK-MB (CK-2) 1.41 Troponin I 0.039 NT-Pro-B Natriuret Pep 8480 H 04/01/17 04/02/1717 18:30 01:08 01:08 Creatine Kinase 106 CK-MB (CK-2) 1.20 1.42 Troponin I 0.040 0.038 NT-Pro-B Natriuret Pep 04/02/17 04/04/17 05:49 05:13 Creatine Kinase CK-MB (CK-2) Troponin I NT-Pro-B Natriuret Pep 4810 H 3150 H Impressions: Chest X-Ray 04/01/17 10:37 IMPRESSION: Borderline cardiomegaly without failure. Assessment & Plan - Diagnosis (1) Atrial fibrillation with rapid ventricular response Is this a current diagnosis for this admission?: Yes (2) Congestive heart failure Qualifiers: Congestive heart failure type: unspecified congestive heart failure type Congestive heart failure chronicity: acute Qualified Code(s): I50.9 - Heart failure, unspecified Is this a current diagnosis for this admission?: Yes (3) Hyperlipidemia Qualifiers: Hyperlipidemia type: unspecified Qualified Code(s): E78.5 - Hyperlipidemia , unspecified Is this a current diagnosis for this admission?: Yes (4) Hypertension Qualifiers: Hypertension type: essential hypertension Qualified Code(s): I10 - Essential (primary) hypertension Is this a current diagnosis for this admission?: Yes (5) Multinodular goiter Is this a current diagnosis for this admission?: Yes - Time Time Spent with patient: 25-34 minutes Medications reviewed and adjusted accordingly: Yes Anticipated discharge: Home with Homehealth Within: Other - Inpatient Certification Based on my medical assessment, after consideration of the patient's comorbidities, presenting symptoms, or acuity I expect that the services needed warrant INPATIENT care.: Yes I certify that my determination is in accordance with my understanding of Medicare's requirements for reasonable and necessary INPATIENT services [42 CFR 412.3e].: Yes Medical Necessity: Need Close Monitoring Due to Risk of Patient Decompensation, Need For Continuous Telemetry Monitoring, Risk of Complication if Not Cared For in Hospital Post Hospital Care: D/C Siphoner Documentation - Plan Summary Plan Summary: Continue current mediation management. See covering attending physician orders.
[2017-04-06] MEDS: ACETAMINOPHEN 325 MG TABLET PO PRN (01:20)
[2017-04-06 06:31] LABS: HEMATOCRIT 29.6 % (36.0-47.0); HEMOGLOBIN 9.4 g/dL (12.0-15.5); HGB HCT DIFFERENCE -1.4; MEAN CORPUSCULAR HEMOGLOBIN 26.8 pg (27.0-33.4); MEAN CORPUSCULAR HGB CONC 31.7 g/dL (32.0-36.0); MEAN CORPUSCULAR VOLUME 85 fl (80-97); RED CELL DISTRIBUTION WIDTH 14.1 % (11.5-14.0); WHITE BLOOD COUNT 4.6 10^3/uL (4.0-10.5)
[2017-04-06] MEDS: FUROSEMIDE 20 MG TABLET PO SCH (09:25)
[2017-04-06] MEDS: APIXABAN 5 MG TABLET PO SCH (09:26)
[2017-04-06] MEDS: FERROUS SULFATE 325 MG TABLET PO SCH (09:28)
[2017-04-06] MEDS: DILTIAZEM HCL 120 MG CAP.SR.24H PO SCH (09:28)
[2017-04-06] MEDS: METOPROLOL SUCCINATE 25 MG TAB.SR.24H PO SCH (09:28)
--- NOTE | 2017-04-06 12:54 | PDOC PROGRESS REPORT ---
Subjective Progress Note for:: 04/06/17 Subjective:: patient had EGD and colonoscopy done last week patient tolerated her procedure well Hgb has been stable of note, biopsies are taking longer than usual still waiting on reports from about 4 days ago patient not having any bleeding has been restarted on anticoagulation no melena reported patient denies any abdominal pain tolerating diet OK patient is being seen by Cardiology Physical Exam Vital Signs: Temp Pulse Resp BP Pulse Ox 98.5 F 63 16 118/55 L 96 04/06/17 07:21 04/06/17 07:21 04/06/17 07:21 04/06/17 07:21 04/06/17 10:13 Intake & Output 04/05/17 04/06/17 04/07/17 06:59 06:59 06:59 Intake Total 1329 712 Balance 1329 712 Weight 111.1 kg 110.8 kg General appearance: PRESENT: no acute distress, well-developed, well-nourished Head exam: PRESENT: atraumatic, normocephalic Eye exam: PRESENT: EOMI, PERRLA. ABSENT: nystagmus, periorbital swelling, scleral icterus Throat exam: ABSENT: tonsillar exudate, tonsillogmegaly Neck exam: ABSENT: meningismus, tenderness, thyromegaly Respiratory exam: PRESENT: symmetrical, unlabored. ABSENT: tachypnea, wheezes Cardiovascular exam: PRESENT: RRR, +S1, +S2 GI/Abdominal exam: PRESENT: soft. ABSENT: rebound, rigid, tenderness Extremities exam: ABSENT: joint swelling Musculoskeletal exam: PRESENT: full ROM Neurological exam: PRESENT: oriented to time, oriented to situation, CN II-XII grossly intact Skin exam: PRESENT: normal color. ABSENT: mottled, pallor, petechiae, urticaria , vesicles Results Laboratory Results: 04/06/17 05:25 04/04/17 05:13 04/06/17 05:25 WBC 4.6 RBC 3.50 L Hgb 9.4 L Hct 29.6 L MCV 85 MCH 26.8 L MCHC 31.7 L RDW 14.1 H Plt Count 133 L 04/01/17 04/01/17 04/01/17 11:11 11:11 18:30 Creatine Kinase 108 84 CK-MB (CK-2) 1.41 Troponin I 0.039 NT-Pro-B Natriuret Pep 8480 H 04/01/17 04/02/17 04/02/17 18:30 01:08 01:08 Creatine Kinase 106 CK-MB (CK-2) 1.20 1.42 Troponin I 0.040 0.038 NT-Pro-B Natriuret Pep 04/02/17 04/04/17 05:49 05:13 Creatine Kinase CK-MB (CK-2) Troponin I NT-Pro-B Natriuret Pep 4810 H 3150 H Impressions: Chest X-Ray 04/01/17 10:37 IMPRESSION: Borderline cardiomegaly without failure. Assessment & Plan - Diagnosis (1) Anemia Plan: No active bleeding is noted still waiting on biopsies Hgb is stable should be able to tolerate anticoagulation further recommendations to follow - Time Time Spent with patient: 15-24 minutes
[2017-04-06 12:55] VITALS: BP 119/67
--- NOTE | 2017-04-06 16:55 | PDOC DISCHARGE SUMMARY ---
General - Admit/Disc Date/PCP Admission Date/Primary Care Provider: 04/01/17 11:04 SANDRA MAZA MD Discharge Date: 04/06/17 - Discharge Diagnosis (1) Atrial fibrillation with rapid ventricular response Is this a current diagnosis for this admission?: Yes Summary: Currently all stableContinues to Eliquis and Cardizem and beta-araceli and follow up with Dr. Simpson as outpatient (2) Congestive heart failure Is this a current diagnosis for this admission?: Yes Summary: Most likely diastolic congestive heart failure with the Lasix 20 mg (3) SOB Is this a current diagnosis for this admission?: Yes Summary: Due to the atrial fibrillation congestive heart failure currently all resolved (4) Hypertension Is this a current diagnosis for this admission?: Yes Summary: Currently all stable DC the lisinopril and hydrochlorothiazide because of started on beta-araceli and Cardizem (5) Chronic back pain Is this a current diagnosis for this admission?: Yes Summary: Patient is currently see outpatients clinic (6) Hyperlipidemia Is this a current diagnosis for this admission?: Yes Summary: Continues to take statin (7) Multinodular goiter Is this a current diagnosis for this admission?: Yes Summary: TSH is all normal will follow outpatient (8) Anemia Is this a current diagnosis for this admission?: Yes Summary: Anemia due to the recent blood loss currently all stable - Additional Information Resuscitation Status: Full Code Discharge Diet: Cardiac Discharge Activity: Activity As Tolerated, Balance Activity w/Rest, Weigh Daily Home Medications: Apixaban [Eliquis 5 mg Tablet] 5 mg PO Q12 3 Days #60 04/06/17 Diltiazem HCl [Cardizem Cd 120 mg Capsule] 120 mg PO Q12 #60 cap.sr.24h Ferrous Sulfate [Feosol 325 mg Tablet] 325 mg PO DAILY@0900 #30 tablet 04/06/17 Furosemide [Lasix 20 mg Tablet] 20 mg PO DAILY #30 04/06/17 Metoprolol Succinate [Toprol Xl 25 mg Tab.sr] 25 mg PO Q12 #60 tab.sr.24h History of Present Illness History of Present Illness: DARY BASS is a 71 year old female This is a 71-year-old female with a history of the hypertension and recently diagnosed with atrial fibrillation and currently see a Dr. Simpson and start the patient on a Cardizem and EliquisAnd the patient's cannot afford the Cardizem and patients went to the Dr. Simpson's office was a heart rate was very high and patient's feeling short of breath and patient was sent to the emergency departmentAnd the patient in the emergency departments found the A. fib with rapid ventricular response and patient was started on a Cardizem drip and given Lovenox subcuAnd patient seen by Dr. Simpson in the emergency department and the suggest to admit in the IMCU for further evaluations Patient's currently denied any chest pain denied any other symptoms Hospital Course Hospital Course: This is a 71-year-old female with persistently a new onset of the A. fib Went to cardiology office and heart rate was 130 range and patient was sent to the emergency departmentAnd patient was started on a Cardizem drip in the subcu Lovenox Patient also have anemia and underwent for the endoscopy and colonoscopy and find a AVM and ablation was done Patient otherwise seen by cardiology Dr. Simpson and switched to the p.o. medications Patient's otherwise remained stable hemoglobin remained stable Patients walk in the hallway without any problem This with the daughter very extensively regarding the patient's current condition and will follow and arrange the home health Discuss about the Eliquis and possible side effect and fall precautions Physical Exam Vital Signs: Temp Pulse Resp BP Pulse Ox 97.7 F 70 16 119/67 100 04/06/17 13:30 04/06/17 14:00 04/06/17 13:30 04/06/17 13:30 04/06/17 13:30 Intake & Output 04/05/17 04/06/17 04/07/17 06:59 06:59 06:59 Intake Total 1329 712 660 Balance 1329 712 660 Weight 111.1 kg 110.8 kg General appearance: PRESENT: no acute distress, well-developed, well-nourished Head exam: PRESENT: atraumatic, normocephalic Eye exam: PRESENT: conjunctiva pink, EOMI, PERRLA. ABSENT: scleral icterus Ear exam: PRESENT: normal external ear exam Mouth exam: PRESENT: moist, tongue midline Neck exam: PRESENT: full ROM. ABSENT: carotid bruit, JVD, lymphadenopathy, thyromegaly Respiratory exam: PRESENT: clear to auscultation mary Cardiovascular exam: PRESENT: RRR. ABSENT: diastolic murmur, rubs, systolic murmur Murmur grade: 2 Pulses: PRESENT: normal dorsalis pedis pul, +2 pedal pulses bilateral Vascular exam: PRESENT: normal capillary refill GI/Abdominal exam: PRESENT: normal bowel sounds, soft. ABSENT: distended, guarding, mass, organolmegaly, rebound, tenderness Rectal exam: PRESENT: deferred Extremities exam: ABSENT: pedal edema Musculoskeletal exam: PRESENT: ambulatory Neurological exam: PRESENT: alert, awake, oriented to person, oriented to place , oriented to time, oriented to situation, CN II-XII grossly intact. ABSENT: motor sensory deficit Psychiatric exam: PRESENT: appropriate affect, normal mood. ABSENT: homicidal ideation, suicidal ideation Skin exam: PRESENT: dry, intact, warm. ABSENT: cyanosis, rash Results Laboratory Results: 04/06/17 05:25 04/04/17 05:13 04/06/17 05:25 WBC 4.6 RBC 3.50 L Hgb 9.4 L Hct 29.6 L MCV 85 MCH 26.8 L MCHC 31.7 L RDW 14.1 H Plt Count 133 L 04/01/17 04/01/17 04/01/17 11:11 11:11 18:30 Creatine Kinase 108 84 CK-MB (CK-2) 1.41 Troponin I 0.039 NT-Pro-B Natriuret Pep 8480 H 04/01/17 04/02/17 04/02/17 18:30 01:08 01:08 Creatine Kinase 106 CK-MB (CK-2) 1.20 1.42 Troponin I 0.040 0.038 NT-Pro-B Natriuret Pep 04/02/17 04/04/17 05:49 05:13 Creatine Kinase CK-MB (CK-2) Troponin I NT-Pro-B Natriuret Pep 4810 H 3150 H Impressions: Chest X-Ray 04/01/17 10:37 IMPRESSION: Borderline cardiomegaly without failure. Plan Time Spent: Greater than 30 Minutes - Discharge the patient with the above medications Following a one-week in the office and repeat the Chem-7 and CBC Follow with the cardiology as outpatient
--- NOTE | 2017-04-06 18:50 | PDOC PROGRESS REPORT ---
Subjective Progress Note for:: 04/06/17 Subjective:: Patient seems to be doing better with significant improvement since conversion to sinus rhythm. Pt is denying any chest arm or neck discomfort. Patient denying any PND, orthopnea. Patient denied any sustained palpitations, dizziness, syncope, near syncope. Patient denying any fever chills. Patient denying any other significant discomfort. Patient converted to sinus rhythm, patient noted to be maintaining the sinus rhythm. Heart rate under better control. Review of systems: Rest review of systems negative. Medications: Medications have been reviewed. Physical Exam Vital Signs: Temp Pulse Resp BP Pulse Ox 97.7 F 70 16 119/67 100 04/06/17 13:30 04/06/17 14:00 04/06/17 13:30 04/06/17 13:30 04/06/17 13:30 Intake & Output 04/05/17 04/06/17 04/07/17 06:59 06:59 06:59 Intake Total 1329 712 660 Balance 1329 712 660 Weight 111.1 kg 110.8 kg Exam: GENERAL: well-nourished and in no acute distress. Alert and oriented x3 HEAD: Atraumatic, normocephalic. EYES: Pupils equal round and reactive to light, extraocular movements intact, sclera anicteric, conjunctiva are normal. ENT: TMs normal, nares patent, oropharynx clear without exudates. Moist mucous membranes. No oral ulcerations or bleeding gums noted NECK: supple without lymphadenopathy. Trachea is central. No cervical or axillary lymphadenopathy noted. Carotids are 2+, JVD WNL LUNGS: Respiration seems nonlabored, no significant accessory muscle action noted. Breath sounds clear to auscultation bilaterally and equal noted. No wheezes rales or rhonchi noted. No significant dullness noted on percussion. CHEST: Palpation of the chest wall shows no significant chest wall tenderness. No other significant abnormalities noted. HEART: [place] [employer] OFF[employer], No PSH, 1/6 LIONEL aortic area, 1/6 kaur systolic murmur mitral area, no rubs, no gallops. ABDOMEN: Soft, no significant tenderness appreciated, normoactive bowel sounds. No guarding, no rebound. No rigidity noted . No masses appreciated. EXTREMITIES: Pedal pulses are 1-2+, no calf tenderness noted. No clubbing or cyanosis.trace pedal edema noted NEUROLOGICAL: Focused neurological exam showed no significant neurologic deficit. Normal speech, no focal weakness appreciated. PSYCH: Normal mood, normal affect. Judgment and insight within normal limits. SKIN: No significant ecchymosis, rash, ulcerations or signs of pruritus noted. MUSCULOSKELETAL EXAM: No significant joint swelling noted. Results Laboratory Results: 04/06/17 05:25 04/04/17 05:13 04/06/17 05:25 WBC 4.6 RBC 3.50 L Hgb 9.4 L Hct 29.6 L MCV 85 MCH 26.8 L MCHC 31.7 L RDW 14.1 H Plt Count 133 L 04/01/17 04/01/17 04/01/17 11:11 11:11 18:30 Creatine Kinase 108 84 CK-MB (CK-2) 1.41 Troponin I 0.039 NT-Pro-B Natriuret Pep 8480 H 04/01/17 04/02/17 04/02/17 18:30 01:08 01:08 Creatine Kinase 106 CK-MB (CK-2) 1.20 1.42 Troponin I 0.040 0.038 NT-Pro-B Natriuret Pep 04/02/17 04/04/17 05:49 05:13 Creatine Kinase CK-MB (CK-2) Troponin I NT-Pro-B Natriuret Pep 4810 H 3150 H EKG Comments: Telemetry strips shows patient maintaining sinus rhythm. Heart rate well controlled Impressions: Chest X-Ray 04/01/17 10:37 IMPRESSION: Borderline cardiomegaly without failure. Assessment & Plan - Diagnosis (1) Atrial fibrillation with rapid ventricular response Is this a current diagnosis for this admission?: Yes (2) Congestive heart failure Qualifiers: Congestive heart failure type: unspecified congestive heart failure type Congestive heart failure chronicity: acute Qualified Code(s): I50.9 - Heart failure, unspecified Is this a current diagnosis for this admission?: Yes (3) Hyperlipidemia Qualifiers: Hyperlipidemia type: unspecified Qualified Code(s): E78.5 - Hyperlipidemia , unspecified Is this a current diagnosis for this admission?: Yes (4) Hypertension Qualifiers: Hypertension type: essential hypertension Qualified Code(s): I10 - Essential (primary) hypertension Is this a current diagnosis for this admission?: Yes (5) Preoperative cardiovascular examination Is this a current diagnosis for this admission?: Yes (6) Sleep disorder Is this a current diagnosis for this admission?: Yes (7) Obesity Qualifiers: Body mass index: unspecified BMI Is this a current diagnosis for this admission?: Yes - Notes Notes: Atrial fibrillation with RVR: Converted to sinus rhythm, maintaining sinus rhythm since yesterday. Continue with rate control and chronic anticoagulation. For better rate control, continue metoprolol succinate to 25 mg p.o. every 12. Continue p.o. Cardizem at 120 mg p.o. twice daily. This was discussed with Dr. Lynn. Patient will follow-up with me. Patient is going to be discharged. CHF: Secondary to diastolic dysfunction and being aggravated by atrial fibrillation. Continue diuretic therapy. Hopefully patient will maintain sinus rhythm. Dyslipidemia: Currently stable continue statin therapy. Hypertension: Blood pressure goal is 135/85 or less. Currently stable. Obesity: Patient will benefit from weight loss. Sleep disorder: Patient will benefit from a sleep study. Discussed that she has high probability of having underlying sleep apnea syndrome. This was explained to the patient. Anemia: Hemoglobin with and stable. Continue Eliquis therapy for chronic anticoagulation. Hemoglobin noted to be stable. Patient was seen in the morning on morning rounds. Discharged okay from cardiac standpoint. - Time Time with patient: 15-25 minutes - CODE STATUS was discussed, patient remains full code. Surrogate decision-maker unchanged. Multiple medical problems were addressed. More than 50% of the time spent coordinating care, discussing management plans with involved caregivers. Management plans discussed with involved personnels. Medical decision making was of moderate to high complexity , patient's has multiple comorbidities. Medications reviewed and adjusted accordingly: Yes
== END 2017-04-06 15:56 | disposition home or self-care (01) | DRG 308 ==
LOC: ER 10:34 → EH 11:04 → UNDOADMIN 11:40 → EH 11:40 → 3S 13:44
PROVIDERS: ADMIT Family Medicine; ATTEND Family Medicine
PROC: 3E0F73Z Introduction of Anti-inflammatory into Respiratory Tract, Via Natural or Artificial Opening (ICD-10-PCS; 2017-04-01)
PROC: 0DB68ZX Excision of Stomach, Via Natural or Artificial Opening Endoscopic, Diagnostic (ICD-10-PCS; principal; 2017-04-02 13:30)
PROC: 0D5N8ZZ Destruction of Sigmoid Colon, Via Natural or Artificial Opening Endoscopic (ICD-10-PCS; 2017-04-02 13:30)
DX: I48.1 Persistent atrial fibrillation (principal); I50.31 Acute diastolic (congestive) heart failure; Q27.30 Arteriovenous malformation, site unspecified; I48.91 Unspecified atrial fibrillation; K64.8 Other hemorrhoids; I11.0 Hypertensive heart disease with heart failure; G89.29 Other chronic pain; M54.9 Dorsalgia, unspecified; E78.5 Hyperlipidemia, unspecified; E04.2 Nontoxic multinodular goiter; M19.90 Unspecified osteoarthritis, unspecified site; D50.0 Iron deficiency anemia secondary to blood loss (chronic); E66.9 Obesity, unspecified; G47.9 Sleep disorder, unspecified; K29.70 Gastritis, unspecified, without bleeding; Z88.2 Allergy status to sulfonamides; Z79.899 Other long term (current) drug therapy; Z87.891 Personal history of nicotine dependence; Z82.49 Family history of ischemic heart disease and other diseases of the circulatory system; Z68.37 Body mass index [BMI] 37.0-37.9, adult
CPT/HCPCS: 00810; 36415; 43239; 45388; 71010; 80048; 82272; 82550; 82553; 82962; 83735; 83880; 84443; 84484; 85025; 85027; 88305; 88342; 93005; 93010; 93306; 99285; G8978-GP; G8979-GP; J1160; J1650; J1940; J2250; J2704; J3490

== ENCOUNTER → 2017-11-02 | Outpatient (CLI) | payer MEDICARE ==
--- NOTE | 2017-11-04 10:33 | WOMENS IMAGING REPORT ---
EXAM DESCRIPTION: 3D SCREENING MAMMO BILAT COMPLETED DATE/TIME: 11/02/2017 10:26 am REASON FOR STUDY: ROUTINE SCREENING;Z12.31 Z12.31 ENCNTR SCREEN MAMMOGRAM FOR MALIGNANT NEOPLASM OF ADAM COMPARISON: 2012, 2015 TECHNIQUE: Standard craniocaudal and mediolateral oblique views of each breast recorded using digita l acquisition and breast tomosynthesis. LIMITATIONS: None. FINDINGS: No masses, calcifications or architectural distortion. No areas of suspicion. Read with the assistance of CAD. .[facility] - R2 [employer] Version 1.3 .[facility] - R2 Cenova Version 1.[address] .[facility] - R2 Cenova Version 2.4 .[facility] - R2 Cenova Version 2.4 .[facility] - R2 [employer] Version 9.2 IMPRESSION: NORMAL MAMMOGRAM. BIRADS 1. BREAST DENSITY: b. There are scattered areas of fibroglandular density. BIRAD: 1 NEGATIVE RECOMMENDATION: ROUTINE SCREENING COMMENT: The patient has been notified of the results by letter per SA requirements. Additional no tification policies are in place for contacting patient with suspicious or incomplete findings. Quality ID #225: The [employer] recommends an annual screening mammogram for women aged 40 years or over. This facility utilizes a reminder system to ensure that all patients receive reminder letters, and/or direct phone calls for appointments. This includes reminders for routine scr eening mammograms, diagnostic mammograms, or other Breast Imaging Interventions when appropriate. Th is patient will be placed in the appropriate reminder system. The [employer] (ACR) has developed recommendations for screening MRI of the breast s in certain patient populations, to be used in conjunction with mammography. Breast MRI surveillanc e may be appropriate for women with more than 20% lifetime risk of developing breast cancer as deter mined by genetic testing, significant family history of the disease, or history of mantle radiation f or Hodgkins Disease. ACR Practice Guidelines 2008. DBT Technology DBT is a type of tomographic mammography. With conventional mammography, overlapping breast tissue ma y make lesions difficult to detect, even with good compression. DBT uses an x-ray tube that rotates a round the breast, taking images at different angles. These images are then combined to create thin sl ices of the breast that the radiologist can view as a 3D reconstruction. The [employer] unit can perform full-field digital mammograms (2D imaging); or DBT (3D imaging); or both, in a combination mode that quickly performs both the mammogram and the tomosynthesis scan while the breast is still compressed. PQRS 6045F: Fluoroscopic imaging is not utilized for breast tomosynthesis. TECHNICAL DOCUMENTATION: FINDING NUMBER: (1) ASSESSMENT: (1) JOB ID: [id number] [employer]- All Rights Reserved Reading location - IP/workstation name: [email or web address]
== END ==
LOC: WI 09:56
PROVIDERS: ATTEND Physician Assistant
DX: Z12.31 Encounter for screening mammogram for malignant neoplasm of breast (principal)
CPT/HCPCS: 77063; 77067

== ENCOUNTER → 2018-02-09 | Outpatient (CLI) | payer MEDICARE ==
--- NOTE | 2018-02-09 11:52 | RADIOLOGY REPORT (SQ) ---
EXAM DESCRIPTION: U/S THYROID/SFT TISS HD NECK COMPLETED DATE/TIME: 02/09/2018 10:27 am REASON FOR STUDY: MULTINODULAR GOITER E04.2 NONTOXIC MULTINODULAR GOITER COMPARISON: 02/02/2017 TECHNIQUE: Dynamic and static almeida-scale images acquired of the thyroid gland. Selected additional c olor/power Doppler images recorded. All images stored to PACS. LIMITATIONS: None. FINDINGS: RIGHT LOBE: Normal size. Homogeneous echotexture. 4 x 6 mm solid nodule. LEFT LOBE: Normal size. Homogeneous echotexture. 10 x 6 mm primarily solid nodule. ISTHMUS: 6 mm. Homogeneous echotexture. No cystic or solid masses. OTHER: No other significant finding. IMPRESSION: Small thyroid nodules. No dominant nodule. TECHNICAL DOCUMENTATION: JOB ID: [id number] [employer]- All Rights Reserved Reading location - IP/workstation name: [email or web address]
== END ==
LOC: RAD 09:43
PROVIDERS: ATTEND Family Medicine
DX: E04.2 Nontoxic multinodular goiter (principal)
CPT/HCPCS: 76536

== ENCOUNTER → 2018-07-30 | Outpatient (CLI) | payer MEDICARE ==
[2018-07-30 16:38] LABS: ABSOLUTE MONOCYTES (AUTO) 0.5 10^3/uL (0.1-1.4); ABSOLUTE NEUT (AUTO) 12.1 10^3/uL (1.7-8.2); BASOPHILS % (AUTO) 0.3 % (0-2); EOSINOPHILS % (AUTO) 0.1 % (0-6); HEMATOCRIT 34.4 % (36.0-47.0); HEMOGLOBIN 11.2 g/dL (12.0-15.5); MEAN CORPUSCULAR HGB CONC 32.5 g/dL (32.0-36.0); MEAN CORPUSCULAR VOLUME 83 fl (80-97); PLATELET COUNT 179 10^3/uL (150-450); RED BLOOD COUNT 4.15 10^6/uL (3.72-5.28); RED CELL DISTRIBUTION WIDTH 14.3 % (11.5-14.0); SEGMENTED NEUTROPHILS % (AUTO) 88.6 % (42-78); TOTAL CELLS COUNTED % (AUTO) 100 %; WHITE BLOOD COUNT 13.7 10^3/uL (4.0-10.5)
[2018-07-30 16:56] LABS: ALANINE AMINOTRANSFERASE 14 U/L (9-52); ALKALINE PHOSPHATASE 91 U/L (38-126); ANION GAP 8 (5-19); ASPARTATE AMINO TRANSFERASE 19 U/L (14-36); BILIRUBIN,DIRECT 0.2 mg/dL (0.0-0.4); BILIRUBIN,TOTAL 0.5 mg/dL (0.2-1.3); BLOOD UREA NITROGEN 24 mg/dL (7-20); CALCIUM 9.2 mg/dL (8.4-10.2); CARBON DIOXIDE 25 mmol/L (22-30); CHLORIDE 110 mmol/L (98-107); GLUCOSE 121 mg/dL (75-110); POTASSIUM 4.2 mmol/L (3.6-5.0); SODIUM 142.5 mmol/L (137-145)
--- NOTE | 2018-07-30 16:59 | RADIOLOGY REPORT (SQ) ---
EXAM DESCRIPTION: CHEST PA/LATERAL COMPLETED DATE/TIME: 07/30/2018 4:41 pm REASON FOR STUDY: COUGH COMPARISON: 08/28/2015. TECHNIQUE: Frontal and lateral radiographic views of the chest acquired. NUMBER OF VIEWS: Two view. LIMITATIONS: None. FINDINGS: LUNGS AND PLEURA: No opacities, masses or pneumothorax. No pleural effusion. MEDIASTINUM AND HILAR STRUCTURES: No masses or contour abnormalities. HEART AND VASCULAR STRUCTURES: Heart normal size. No evidence for failure. BONES: No acute findings. HARDWARE: None in the chest. OTHER: No other significant finding. IMPRESSION: NO SIGNIFICANT RADIOGRAPHIC FINDING IN THE CHEST. TECHNICAL DOCUMENTATION: JOB ID: [id number] [employer]- All Rights Reserved Reading location - IP/workstation name: [email or web address]
== END ==
LOC: OD 15:58
PROVIDERS: ATTEND Physician Assistant
DX: R05 Cough (principal)
CPT/HCPCS: 36415; 71046; 80053; 85025

== ENCOUNTER → 2019-04-28 | Outpatient (CLI) | payer MEDICARE ==
--- NOTE | 2019-04-28 09:36 | WOMENS IMAGING REPORT ---
EXAM DESCRIPTION: 3D SCREENING MAMMO BILAT COMPLETED DATE/TIME: 04/28/2019 8:51 am REASON FOR STUDY: Z12.31 SCREENING MAMMO Z12.31 ENCNTR SCREEN MAMMOGRAM FOR MALIGNANT NEOPLASM OF B RE COMPARISON: [id number] EXAM PARAMETERS: Views: Standard craniocaudal and mediolateral oblique views of each breast recorded using digital acquisition and breast tomosynthesis. Read with the assistance of CAD. .[facility] - R2 [employer] Manager Version 9.2 LIMITATIONS: None. FINDINGS: No suspicious masses, suspicious calcifications or architectural distortion. No areas of c oncern. IMPRESSION: NEGATIVE MAMMOGRAM. BIRADS 1. BREAST DENSITY: b. There are scattered areas of fibroglandular density. BIRAD: ASSESSMENT: 1 NEGATIVE RECOMMENDATION: ROUTINE SCREENING COMMENT: The patient has been notified of the results by letter per MQSA requirements. Additional no tification policies are in place for contacting patient with suspicious or incomplete findings. Quality ID #225: The [employer] recommends an annual screening mammogram for women aged 40 years or over. This facility utilizes a reminder system to ensure that all patients receive reminder letters, and/or direct phone calls for appointments. This includes reminders for routine scr eening mammograms, diagnostic mammograms, or other Breast Imaging Interventions when appropriate. Th is patient will be placed in the appropriate reminder system. TECHNICAL DOCUMENTATION: FINDING NUMBER: (1) ASSESSMENT: (1) JOB ID: [id number] [employer]. [employer]- All Rights Reserved Reading location - IP/workstation name: [email or web address]
== END ==
LOC: WI 08:20
PROVIDERS: ATTEND Physician Assistant
DX: Z12.31 Encounter for screening mammogram for malignant neoplasm of breast (principal)
CPT/HCPCS: 77063; 77067

== ENCOUNTER → 2019-08-11 | Outpatient (CLI) | payer MEDICARE ==
[2019-08-11 11:57] LABS: ABSOLUTE LYMPHOCYTES (AUTO) 0.7 10^3/uL (0.5-4.7); ABSOLUTE MONOCYTES (AUTO) 0.3 10^3/uL (0.1-1.4); ABSOLUTE NEUT (AUTO) 4.5 10^3/uL (1.7-8.2); BASOPHILS % (AUTO) 0.3 % (0-2); EOSINOPHILS % (AUTO) 0.7 % (0-6); HEMATOCRIT 36.6 % (36.0-47.0); HEMOGLOBIN 11.8 g/dL (12.0-15.5); LYMPHOCYTES % (AUTO) 12.3 % (13-45); MEAN CORPUSCULAR HEMOGLOBIN 28.2 pg (27.0-33.4); MEAN CORPUSCULAR HGB CONC 32.2 g/dL (32.0-36.0); MEAN CORPUSCULAR VOLUME 88 fl (80-97); MONOCYTES % (AUTO) 5.1 % (3-13); PLATELET COUNT 136 10^3/uL (150-450); RED BLOOD COUNT 4.18 10^6/uL (3.72-5.28); RED CELL DISTRIBUTION WIDTH 14.7 % (11.5-14.0); SEGMENTED NEUTROPHILS % (AUTO) 81.6 % (42-78); TOTAL CELLS COUNTED % (AUTO) 100 %; WHITE BLOOD COUNT 5.5 10^3/uL (4.0-10.5)
[2019-08-11 12:19] LABS: ALKALINE PHOSPHATASE 75 U/L (38-126); ANION GAP 10 (5-19); ASPARTATE AMINO TRANSFERASE 26 U/L (14-36); BILIRUBIN,DIRECT 0.1 mg/dL (0.0-0.4); BILIRUBIN,TOTAL 0.6 mg/dL (0.2-1.3); BLOOD UREA NITROGEN 28 mg/dL (7-20); CALCIUM 9.2 mg/dL (8.4-10.2); CARBON DIOXIDE 20 mmol/L (22-30); CHLORIDE 112 mmol/L (98-107); GLUCOSE 86 mg/dL (75-110); POTASSIUM 4.4 mmol/L (3.6-5.0); TOTAL PROTEIN 7.1 g/dL (6.3-8.2)
--- NOTE | 2019-08-11 13:49 | RADIOLOGY REPORT (SQ) ---
EXAM DESCRIPTION: CHEST PA/LATERAL COMPLETED DATE/TIME: 08/11/2019 11:39 am REASON FOR STUDY: HEART FAILURE, UNSPECIFIED COMPARISON: 07/30/2018 EXAM PARAMETERS: NUMBER OF VIEWS: two views TECHNIQUE: Digital Frontal and Lateral radiographic views of the chest acquired. RADIATION DOSE: NA LIMITATIONS: none FINDINGS: LUNGS AND PLEURA: No opacities, masses or pneumothorax. No pleural effusion. MEDIASTINUM AND HILAR STRUCTURES: No masses or contour abnormalities. HEART AND VASCULAR STRUCTURES: Heart size is borderline. No ashlee pulmonary edema. BONES: No acute findings. HARDWARE: None in the chest. OTHER: No other significant finding. IMPRESSION: Borderline cardiomegaly without ashlee pulmonary edema. TECHNICAL DOCUMENTATION: JOB ID: [id number] 2010 [employer]- All Rights Reserved Reading location - IP/workstation name: [email or web address]
== END ==
LOC: OD 11:14
PROVIDERS: ATTEND Physician Assistant
DX: I50.9 Heart failure, unspecified (principal)
CPT/HCPCS: 36415; 71046; 80053; 85025

== ENCOUNTER → 2020-02-10 | Outpatient (CLI) | payer MEDICARE ==
--- NOTE | 2020-02-10 13:08 | RADIOLOGY REPORT (SQ) ---
EXAM DESCRIPTION: CT HEAD WITHOUT IMAGES COMPLETED DATE/TIME: 02/10/2020 12:54 pm REASON FOR STUDY: FALL (W19.XXXA), LOSS OF CONSCIOUSNESS (R40.20), HEADACHE (R51), INTERMEDIATE W19.XXX A UNSPECIFIED FALL, INITIAL ENCOUNTER R40.20 UNSPECIFIED COMA Z79.01 INTERMEDIATE (CURRENT) USE OF AN TICOAGULANTS COMPARISON: None. TECHNIQUE: Axial images acquired through the brain without intravenous contrast. Images reviewed wi th bone, brain and subdural windows. Additional sagittal and coronal reconstructions were generated. Images stored on PACS. All CT scanners at this facility use dose modulation, iterative reconstruction, and/or weight based d osing when appropriate to reduce radiation dose to as low as reasonably achievable (ALARA). [facility]: Dose Right [facility]: CareDose [facility]: Dose Right [facility]: Teradose 4D [facility]: [email or web address] RADIATION DOSE: CT Rad equipment meets quality standard of care and radiation dose reduction techniq ues were employed. CTDIvol: 48.6 mGy. DLP: 880 mGy-cm. mGy. LIMITATIONS: None. FINDINGS: VENTRICLES: Prominent. CEREBRUM: No masses. No hemorrhage. No midline shift. Areas of low density in the white matter mos t likely due to chronic micro-vascular ischemic change. No evidence for acute infarction. CEREBELLUM: No masses. No hemorrhage. No alteration of density. No evidence for acute infarction. EXTRAAXIAL SPACES: Mild age-related involutional change. No fluid collections. No masses. ORBITS AND GLOBE: No intra- or extraconal masses. Normal contour of globe without masses. CALVARIUM: No fracture. PARANASAL SINUSES: There is right maxillary sinusitis. SOFT TISSUES: No mass or hematoma. OTHER: No other significant finding. IMPRESSION: MILD CHRONIC CHANGES OF ATROPHY AND MICROVASCULAR ISCHEMIA. NO ACUTE PROCESS. EVIDENCE OF ACUTE STROKE: NO. TECHNICAL DOCUMENTATION: JOB ID: [id number] Quality ID # [id number]: Final reports with documentation of one or more dose reduction techniques (e.g., Au tomated exposure control, adjustment of the mA and/or kV according to patient size, use of iterative reconstruction technique) 2010 [employer]- All Rights Reserved Reading location - IP/workstation name: [email or web address]
== END ==
LOC: RAD 12:35
PROVIDERS: ATTEND Physician Assistant
DX: R40.20 Unspecified coma (principal); W19.XXXA Unspecified fall, initial encounter; Z79.01 Long term (current) use of anticoagulants; R51 Headache
CPT/HCPCS: 70450

== ENCOUNTER → 2020-04-02 | Outpatient (CLI) | payer MEDICARE ==
--- NOTE | 2020-04-02 16:46 | RADIOLOGY REPORT (SQ) ---
EXAM DESCRIPTION: U/S RETROPERITON (RENAL/AORTA) IMAGES COMPLETED DATE/TIME: 04/02/2020 4:24 pm REASON FOR STUDY: R94.4 ABNORMAL RESULTS OF KIDNEY FUNCTION STUDIES R94.4 ABNORMAL RESULTS OF KIDNE Y FUNCTION STUDIES COMPARISON: None. TECHNIQUE: Dynamic and static grayscale images acquired of the kidneys and bladder and recorded on P ACS. Additional selected color Doppler and spectral images recorded. LIMITATIONS: None. FINDINGS: RIGHT KIDNEY: The right kidney measures 8.0 x 3.0 x 4.0 cm, normal size. Normal echogenic ity. No solid or suspicious masses. No hydronephrosis. No calcifications. LEFT KIDNEY: The left kidney measures 9.0 x 3.0 x 4.0 cm, normal size. Normal echogenicity. No solid or suspicious masses. No hydronephrosis. No calcifications. BLADDER: No masses. OTHER FINDINGS: No other significant finding. IMPRESSION: 1. NORMAL RENAL AND BLADDER ULTRASOUND. TECHNICAL DOCUMENTATION: JOB ID: [id number] 2010 [employer]- All Rights Reserved Reading location - IP/workstation name: [email or web address]
== END ==
LOC: RAD 15:25
PROVIDERS: ATTEND Physician Assistant
DX: R94.4 Abnormal results of kidney function studies (principal)
CPT/HCPCS: 76770